=== PATIENT | female | born 1960 | race Caucasian/White ===

== ENCOUNTER → 2017-10-02 15:44 | Outpatient (CLI) | payer OTHER, SELFPAY ==
--- NOTE | 2017-10-02 16:06 | XR_ITS ---
XR chest 2V Ordering Physician: Carlitos Parisi Patient Age: 56 years: Female HISTORY: ITS.REASON: CHEST PAIN, SHORTNESS OF BREATH Chest pain short of breath TECHNIQUE: PA and lateral chest COMPARISON :No relevant studies no chest studies FINDINGS The lungs are well expanded and clear with no consolidation. No focal pneumonia. No pleural effusion. No pneumothorax. Heart is upper normal in size. Melanie and mediastinal structures satisfactory. Small calcified hilar nodes on right chest wall and T-spine intact. IMPRESSION Nothing definitely acute. Lungs clear Heart upper normal in size
[2017-10-02 16:39] LABS: Troponin I < 0.02 ng/ml (0.00-0.06)
[2017-10-02 16:51] LABS: D-Dimer < 100 (0-400)
== END ==
PROVIDERS: PCP Internal Medicine; Visit Provider Internal Medicine
DX: R07.9 Chest pain, unspecified (principal); R06.02 Shortness of breath
CPT/HCPCS: 36415; 71046; 84484; 85378; 93005

== ENCOUNTER → 2017-10-09 16:01 | Outpatient (CLI) | payer OTHER, SELFPAY ==
[2017-10-09 16:18] LABS: Blood Urea Nitrogen 16 mg/dL (7-18); Creatinine,Serum 0.69 mg/dL (0.55-1.02); Estimated Glomerular Filt Rate 88 ml/min (>60); GFR (African American) 107 ML/MIN (>60)
--- NOTE | 2017-10-09 16:54 | CT_ITS ---
CT angio chest Ordering Physician: Carlitos Parisi Patient Age: 56 years: Female HISTORY: ITS.REASON: PLEURISY ON RT. SOA TECHNIQUE: Thin section Helical CT scanning performed following 70 cc Isovue-[id number] followed by 40 mild normal saline From these thin section images thickened axial image set as well as slab volume MippCOMPARISON images in the sagittal coronal plane performed on independent workstation :. FINDINGS No no pulmonary embolism evident. Large patient with slightly limits the detail and resolution but overall study negative for PE. There may be some very minimal underlying chronic lung changes underlying.. Subtle groundglass slight hazy opacity towards the lung bases reflecting atelectasis or possibly early minor chronic lung changes.. Mild apical pleural scarring on right more so than left. Thyroid appears normal. The mediastinum reveals no significant adenopathy or mass. Scant minimal coronary artery calcification.. Heart is upper normal in size no pericardial effusion. No pleural effusion. No significant lung nodule. Calcified granuloma posterior RUL, 4.5 mm size Rib cage, but no obvious rib fractures or lesions. Mild to degenerative disc changes T-spine with mild anterior marginal osteophytes throughout. Uppermost abdomen. Adrenals normal. Fatty changes in liver. IMPRESSION No PE evident.Adequate quality study No focal pneumonia no pleural effusion. No pneumothorax. Perhaps subtle groundglass opacity towards the lung bases. May merely reflect atelectasis vs some early minor chronic lung changes. No significant lung nodule or mass. No mediastinal adenopathy nor hilar adenopathy or mass. IMPRESSION:
== END ==
PROVIDERS: PCP Internal Medicine; Visit Provider Internal Medicine
DX: R09.1 Pleurisy (principal); R06.02 Shortness of breath
CPT/HCPCS: 36415; 71275; 82565; 84520; Q9967

== ENCOUNTER → 2017-10-12 13:38 | Outpatient (CLI) | payer OTHER, SELFPAY ==
--- NOTE | 2017-10-12 13:41 | CA_ITS ---
PROCEDURE: 2-D M-mode and color Doppler study INDICATIONS FOR THE TEST: Chest painX COPD Heart Murmur Tobacco SmokingEX Palpitations Fatigue Syncope Edema HypertensionXDiabetes Mellitus Rheumatic Fever SOBXDOEXObesityXHyperlipidemiaX Family History HD Additional History X PATIENT INFORMATION HEIGHT: 60 WEIGHT:229 GENDER: Female B/P:117/70 2-D/M-MODE INTERPRETATION: 2-D MEASUREMENTS OBSERVED VALUES IN CMS Right Ventricular Dimension (RVDd) 2.2 Interventricular Septum (Thickness)(IVsd) 1.2 Left Ventricular Internal Dimensions(LVIDd) 5.5 Left Ventricular Posterior Wall (Thickness)(LVPWd) 1.1 Aortic Root 3.0 Aortic Cusp Separation 1.8 Left Atrial Dimensions (LAD) 3.7 2D 1. Left atrium is mildly enlarged, left ventricle is normal size, there is mild concentric left ventricular hypertrophy, visually estimated ejection fraction 55% with no obvious regional wall motion abnormality. 2. The right atrium and right ventricle are mildly enlarged with normal contractility. 3. The aortic valve is minimally thickened and fibrosed. 4. The mitral and tricuspid valve are grossly normal. 5. The pulmonic valve is poorly visualized. 6. No significant pericardial effusion noted. DOPPLER INTERROGATION: Doppler interrogation of the aortic, mitral and tricuspid valvular presence of mild mitral and tricuspid regurgitation, tricuspid regurgitant jet velocity insufficient for calculation of the right ventricular systolic pressure, grade 1 diastolic dysfunction seen without tissue Doppler evidence of raised left atrial pressure. CONCLUSION: 1. Mildly enlarged left atrium, normal left ventricular size, mild concentric left ventricular hypertrophy, visually estimated ejection fraction 55% with no obvious regional wall motion abnormality, grade 1 diastolic dysfunction seen without tissue Doppler evidence of raised left atrial pressure. 2. Mildly enlarged right atrium and right ventricle, contractility of the right ventricle is normal 3. No significant pericardial effusion noted. 4. Mild mitral and tricuspid regurgitation.
== END ==
PROVIDERS: Family Provider Internal Medicine; PCP Internal Medicine; Visit Provider Internal Medicine
DX: R09.1 Pleurisy (principal); R06.02 Shortness of breath
CPT/HCPCS: 93306

== ENCOUNTER → 2017-11-17 12:26 | Outpatient (CLI) | payer OTHER, SELFPAY | PROVIDERS: PCP Internal Medicine; Visit Provider Internal Medicine | DX: G47.30 Sleep apnea, unspecified (principal); R06.02 Shortness of breath; R09.1 Pleurisy; R06.83 Snoring | CPT/HCPCS: 95806 ==

== ENCOUNTER → 2018-07-16 15:51 | Outpatient (CLI) | payer OTHER, SELFPAY ==
--- NOTE | 2018-07-16 15:54 | MM_ITS ---
MM Dig screening mamm BI w/CAD ORDERING PHYSICIAN : Carlitos Parisi PATIENT AGE: 57 years GENDER: Female COMPARISON: December 02, 2016 bilateral mammogram & 06/03/2016 HISTORY: SCREENING no hormones. No new complaints. Patient with Previous stereotactic biopsy left breast. Family history. Maternal grandmother with breast cancer in her 80s TECHNIQUE: Standard CC and MLO images were obtained. R2 CAD reviewed. FINDINGS: Mild to moderate residual fibroglandular elements bilateral RIGHT BREAST: Small ovoid nodular density or cyst at deep right breast towards upper outer quadrant.Fairly well-defined margins.. However This has increased in size slightly since previous studies 2016 and 2015 radiograph the measures 13. mm x 8 mm.. I recommend spot views: MLO, 90 degrees & cc spot views and then ultrasound of right breast to further evaluate. Remainder of right breast stable LEFT BREAST: A particularly is biopsy at the deep left breast with 2 metallic markers from such a noted. 01A and one towards upper-outer quadrant of the deep left breast. No new findings of concern nodularity seen towards upper-outer quadrant is less evident today. Follow-up left mammogram 1 year adequate Remainder the right breast appears stable IMPRESSION: 1. Right breast.: Recommend spot views and ultrasound right breast. Slight interval enlargement of ovoid nodular density deep right breast towards upper-outer quadrant 2. Left breast. No new findings.. Follow-up in one year BI-RADS Category: 0 Need Additional Imaging Evaluation RECOMMENDED FOLLOW-UP: IMM - IMMEDIATE FOLLOW-UP RECOMMENDED Right breast Spot views and right breast ultrasound recommended (A letter has been sent to the patient regarding results of the study.)
== END ==
PROVIDERS: PCP Internal Medicine; Visit Provider Internal Medicine
DX: Z12.31 Encounter for screening mammogram for malignant neoplasm of breast (principal)
CPT/HCPCS: 77067

== ENCOUNTER → 2018-08-03 13:43 | Outpatient (CLI) | payer OTHER, SELFPAY ==
--- NOTE | 2018-08-03 13:53 | US_ITS ---
MM Dig mamm DX unilat RT CAD US breast RT complete, Ordering Physician: Carlitos Parisi Patient Age: 57 years: Female HISTORY: ITS.REASON: ABNORMAL MAMM TECHNIQUE: Spot CC and ML and MLO views right breast followed by right breast ultrasound including axillary survey COMPARISON :May 2016, 07/16/2018, 12/02/2016, ultrasound from June 2016. DIAGNOSTIC RIGHT MAMMOGRAM-SPOT VIEWS CC and MLO and 90 degree views right breast again demonstrate a nodular density deep upper outer quadrant. The 12 mm AP x 9 mm. ========= ULTRASOUND RIGHT BREAST. Included axilla survey Scanning performed through the entire breast including axillary survey. There is no areas of significant concern. A small cluster of debris-filled apocrine cyst 9 o'clock may be present measuring,. Possibly up to 6 mm size overall dimension. However in size is somewhat less than I would've expected from the mammogram. Would recommend follow-up ultrasound and mammogram 3 days 4 months for ongoing evaluation decreased since this is this density has become more apparent on the mammogram since 2016. However we have no stereotactic biopsy option currently and short interval follow-up would be best option IMPRESSION Right mammogram: Nodular density at upper-outer quadrant right breast on mammography is again evident measuring 12 x 9 mm.. This focal nodular has shown progression since 2016.. Today's ultrasound A cluster apocrine small cyst is seen in this area measuring up to 6 mm at 9:00 in the same region although it may matches density it is ultrasound appearance smaller than I would have expected. Recommended follow-up right mammogram and right breast ultrasound in 3-4 months to again evaluate. BI-RADS Category: 3 Probably Benign Finding Short Term Follow-up RECOMMENDED FOLLOW-UP: 3M - 3 MONTH FOLLOWUP (No stereotactic biopsy option currently available thus short interval follow-up right breast ultrasound and mammogram best option at this point for this probable benign area)
== END ==
PROVIDERS: PCP Internal Medicine; Visit Provider Internal Medicine
DX: R92.8 Other abnormal and inconclusive findings on diagnostic imaging of breast (principal)
CPT/HCPCS: 76641; 77065

== ENCOUNTER → 2018-11-05 14:09 | Outpatient (CLI) | payer OTHER, SELFPAY ==
--- NOTE | 2018-11-05 14:17 | MM_ITS ---
MM Dig mamm DX unilat RT CAD, US breast RT complete Ordering Physician: Carlitos Parisi Patient Age: 58 years Female INDICATION: Follow-up nodular density deep central central right breast slightly towards 9:00 COMPARISON: .. . August 03, 2018 right mammogram July 16, 2018 bilateral screening mammogram,. . December 02, 2016 and July 2018 right breast ultrasound & mammogram.. DIAGNOSTIC RIGHT MAMMOGRAM WITH SPOT VIEWS TECHNIQUE: Focal Cc and MLO view right breast along with spot CC and MLO view. FINDINGS: Again see 12.5 mm x 8.5 mm nodule at the deep right breast. This appears similar in size to nodule seen in July2018 a question incrementally larger x 1 mm.. But overall Fairly stable since 2018 but. It Has increased in size since 2017. Smooth wall delineated but slightly lobulated margin on mammography ======= ULTRASOUND RIGHT BREAST including axilla survey Survey entire breast was performed along with axillary survey, however particular attention was directed towards the region of this nodule. This area is difficult to visualize but the technologist did eventually visualize a small debris filled cystic area measuring up to over 1 cm at the deep central right breast 9 o'clock position which would seem to correlate. Slightly different position labeling than I would've expected but I believe this is the same cyst as seen on mammogram. It demonstrates minimal back wall enhancement and through transmission compatible with a cyst. This is slightly more evident slightly larger than on the ultrasound from July 2018 and I believe this is merely because it was better seen and demonstrated today. Follow-up In -6 months to resume annual mammogram schedule suggest-to further confirm stability And again confirmed benign cystic nature of this area. Again it was more difficult to visualize at ultrasound than I would've anticipated based on the mammogram. I personally scanned this area as well. ... . IMPRESSION: ...... 1. Today's right mammogram again shows a well-defined slightly lobulated ovoid deep right breast. It has not changed appreciably since July, on mammography. 2. Today's ultrasound does reveal a just over 1 cm debris-filled cyst which seem to correspond to this area at the deep central right breast 9 o'clock position. Overall would suggest a bilateral mammogram in 6 months to resume annual mammography schedule.. Ultrasound that time right breast again suggested. & Further confirm stability BI-RADS Category: 3 Probably Benign Finding Short Term Follow-up RECOMMENDED FOLLOW-UP: 6M 6 MONTH FOLLOW-UP A letter has been sent to the patient regarding results of the study.)
== END ==
PROVIDERS: PCP Internal Medicine; Visit Provider Internal Medicine
DX: R92.8 Other abnormal and inconclusive findings on diagnostic imaging of breast (principal)
CPT/HCPCS: 76641; 77065

== ENCOUNTER → 2019-04-12 09:30 | Outpatient (CLI) | payer OTHER, SELFPAY ==
--- NOTE | 2019-04-12 09:33 | XR_ITS ---
PROCEDURE: XR FINGER LT MIN 2V CLINICAL INDICATION: LT THUMB PAIN AND DEFORMITY COMPARISON: No exams were available for comparison FINDINGS: No fracture or dislocation. No lytic or blastic change. There is normal mineralization. There is minor osteophytic spurring of the IP joint of thumb. There is mild diffuse soft tissue swelling about the proximal and distal phalanx of the thumb. There are no foreign bodies. IMPRESSION: 1. No acute bony findings. Dictated by: Dr. Tristan Naik MD 04/12/2019 10:[address] Tristan Naik MD in [place] 04/12/2019 10:06
== END ==
PROVIDERS: PCP Internal Medicine; Visit Provider Internal Medicine
DX: M79.645 Pain in left finger(s) (principal)
CPT/HCPCS: 73140

== ENCOUNTER → 2019-09-06 15:48 | Outpatient (CLI) | payer BC, SELFPAY ==
--- NOTE | 2019-09-06 15:51 | MM_ITS ---
PROCEDURE: MM DIG SCREENING MAMM BI W/CAD CLINICAL INDICATION: SCREENING There is a history of breast cancer patient's maternal grandmother diagnosed after menopause. COMPARISON: [facility] MM Dig screening mamm BI w/CAD from 07/16/2018 DXRT MM Dig mamm DX unilat RT CAD from 08/03/2018 DXRT MM Dig mamm DX unilat RT CAD from 11/05/2018 TECHNIQUE: Standard CC and MLO images and 3D Tomosynthesis was obtained. R2 CAD reviewed. FINDINGS: Scattered fibroglandular densities are seen in both breasts on a background of fatty breast parenchyma. Again noted is the asymmetric oval density central portion right breast which are stable unchanged from previous studies dating back to July 2018. There is a biopsy clip outer quadrant left breast with minimal associated post biopsy scarring. There is a benign-appearing calcification in each breast. Alek images were reviewed. IMPRESSION: Fibrofatty parenchyma with no suspicious lesions seen BI-RAD Category: 2 Benign Finding(s) FOLLOW-UP: 1YR 1 Year Follow-up (A letter has been sent to the patient regarding results of the study.) Dictated by: Dr. Tristan Naik MD 09/10/2019 09:[address] Tristan Naik MD in [place] 09/10/2019 09:11
== END ==
PROVIDERS: PCP Internal Medicine; Visit Provider Internal Medicine
DX: Z12.31 Encounter for screening mammogram for malignant neoplasm of breast (principal)
CPT/HCPCS: 77063; 77067

== ENCOUNTER → 2019-12-31 15:33 | Outpatient (CLI) | payer OTHER, SELFPAY ==
--- NOTE | 2019-12-31 15:40 | XR_ITS ---
PROCEDURE: XR KNEE LT 3V CLINICAL INDICATION: LEFT MEDIAL KNEE PAIN, INJURY AT WORK Medial knee pain, twisting injury with pain COMPARISON: No exams were available for comparison FINDINGS: No fracture or dislocation. No lytic or blastic change. There is normal mineralization. The joint spaces are well-preserved. No significant degenerative/arthritic changes. No erosive changes evident. Other findings:There is a small calcific density along the anterior and proximal aspect of the patella which could represent an old avulsion injury or tendinous injury. This is well-circumscribed. IMPRESSION: No acute findings. Dictated by: Minesh Morgan MD 12/31/2019 15:58 Electronically signed by Minesh Morgan MD in [place] 12/31/2019 15:58
== END ==
PROVIDERS: PCP Internal Medicine; Visit Provider Internal Medicine
DX: M25.562 Pain in left knee (principal); S89.92XA Unspecified injury of left lower leg, initial encounter
CPT/HCPCS: 73562

== ENCOUNTER → 2020-01-27 13:59 | Outpatient (CLI) | payer OTHER, SELFPAY ==
--- NOTE | 2020-01-27 14:05 | XR_ITS ---
PROCEDURE: XR KNEE LT 4V CLINICAL INDICATION: Left knee pain COMPARISON: XR KNEE LT 3V from 12/31/2019 FINDINGS: There are no interval changes. There is a 2.7 millimeter smooth calcification within soft tissues anterior to the patella. The medial, lateral, and the patellofemoral joint spaces are intact. There is no fracture, dislocation, or soft tissue abnormalities. IMPRESSION: No significant change, no acute fracture or dislocation Dictated by: Donald Patterson 01/27/2020 14:38 Electronically signed by Donald Patterson in [place] 01/27/2020 14:38
== END ==
PROVIDERS: PCP Internal Medicine; Visit Provider Orthopaedic Surgery
DX: M25.562 Pain in left knee (principal)
CPT/HCPCS: 73564

== ENCOUNTER 2020-04-09 13:30 | Outpatient (RCR) | payer OTHER, SELFPAY ==
--- NOTE | 2020-01-29 13:44 | HMH.PTOPEV ---
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 She reports no pain at rest, but pain increases when she is walking or actively using the L LE. She had x-ray performed which was negative for fx. She reports no c/o numbness or tingling and no other pain. Chief Complaint Pain Symptom Type Sharp Symptoms Relieved By Rest/Positioning Symptoms Aggravated By Physical Activity,Walking Prior Functional Limitations None Current Functional Limitations Walking,Stairs Symptom Description Activity Dependent Level of pain today (0-10) 5 Pain scale - at its worst (0-10) 8 Hip/Knee Eval Gait Observation General Gait Pattern Observation No Deviations/Normal Palpation Tenderness left Knee Palpation Finding Tenderness Knee Palpation Overall Comment popliteal MMT Hip Flexion Strength Grade 4 Good Hip Abduction Strength Grade 4 Good Knee Extension Strength Grade 5 Normal Knee Flexion Strength Grade 4 Good ROM Knee Extension Active Range of Motion ( 0 degrees) Knee Flexion Active Range of Motion ( 0-133 degrees) Special Tests Knee Apley Compression Test Negative Left,Negative Right Knee Anterior Drawer Test Negative Left,Negative Right Knee Anterior Mira Test Negative Left,Negative Right Knee Posterior Sag ([place] Drawer) Test Negative Left,Negative Right Knee Valgus Stress Test Negative Left,Negative Right Knee Varus Stress Test Negative Left,Negative Right Outpatient Therapy Assessment Impairments Problems/Impairmments Palpation Tenderness,Impaired Strength,Impaired Walking, Subjective C/O Pain,Impaired Self Care/Self Management Prognosis Rehab Potential Good Clinical Impression Consistent with Diagnosis Yes Short Term Goals Number of Weeks 4 Decreased Palpation Tenderness Yes: to min Increase Strength Yes: L LE 4+/
--- NOTE | 2020-03-04 14:46 | HMH.RHREAS ---
Rehab Reassessment Rehab OP Re-assessment Start: 03/04/20 14:42 Freq: Status: Active Protocol: Document 03/04/20 14:43 CLAUDE (Rec: 03/04/20 14:46 CLAUDE [id number]) Electronically Signed By Kishan Soto, PT 03/04/20 14:43 Rehab Re-assessment Subjective Subjective Pt reports she feels better overall, but worries about having to do high steps at work. Objective Objective Notes MMT L LE grossly 4+/5 throughout. Pain: 3/10 in L knee. Assessment Progress Assessment Progressing as Expected Assessment Notes Improved endurance to all activity, no antalgic gait, large step-ups remain difficult. Patient goals met ST,2,3,4,5 Goals Not Met LT,2,3,4,5 Revised Goals none Plan Plan Continue per initial POC. Frequency of Therapy 2 x/wk Duration of therapy 8 wks Time and Billing Re-Eval Time 15 Re-Eval Billing Units 1 PHYSICIAN CERTIFICATION: I certify the specified therapy services for Amy Noguera are required, authorized, and reviewed every 30 days.
== END 2020-04-09 13:35 | disposition home or self-care (01) ==
LOC: PT 13:30
PROVIDERS: Visit Provider Orthopaedic Surgery
DX: S86.912A Strain of unspecified muscle(s) and tendon(s) at lower leg level, left leg, initial encounter (principal)
CPT/HCPCS: 97010; 97014; 97035; 97110; 97112; 97140; 97163; 97164; 97530; G0283

== ENCOUNTER → 2020-09-11 12:48 | Outpatient (CLI) | payer BC, SELFPAY ==
--- NOTE | 2020-09-11 13:10 | MM_ITS ---
PROCEDURE: MM DIG SCREENING MAMM BI W/CAD Digital Breast Tomosynthesis Included CLINICAL INDICATION: SCREENING There is a history of breast cancer patient's maternal grandmother diagnosed at age 80. There has been a previous biopsy left breast for benign disease. COMPARISON: MG DXRT MM Dig mamm DX unilat RT CAD from 08/03/2018 MG DXRT MM Dig mamm DX unilat RT CAD from 11/05/2018 MG MM DIG SCREENING MAMM BI W/CAD from 09/06/2019 TECHNIQUE: Standard CC and MLO images and 3D Tomosynthesis was obtained. R2 CAD reviewed. FINDINGS: The breasts are composed primarily of fat with scattered fibroglandular densities throughout each breast. Again noted is a stable asymmetric benign-appearing nodular density right breast. There is a biopsy clip upper outer quadrant left breast with minimal post biopsy scarring seen adjacent to the clip. There are couple of benign-appearing microcalcifications in each breast. There is no suspicious lesion and no suspicious microcalcifications. IMPRESSION: Fibrofatty parenchyma with no suspicious lesions seen BI-RAD Category: 2 Benign Finding(s) FOLLOW-UP: 1YR 1 Year Follow-up (A letter has been sent to the patient regarding results of the study.) Dictated by: Dr. Tristan Naik MD 09/16/2020 10:26 Dr. Tristan Naik MD in [place] 09/16/2020 10:26
== END ==
PROVIDERS: PCP Internal Medicine; Visit Provider Internal Medicine
DX: Z12.31 Encounter for screening mammogram for malignant neoplasm of breast (principal)
CPT/HCPCS: 77063; 77067

== ENCOUNTER → 2021-02-19 09:29 | Outpatient (CLI) | payer BC, SELFPAY ==
--- NOTE | 2021-02-19 09:35 | XR_ITS ---
PROCEDURE: XR HIP LT 2-3V W/PELVIS CLINICAL INDICATION: LT hip pain COMPARISON: No exams were available for comparison FINDINGS: [id number] osteoarthritic changes are present involving the left hip with loss of joint space and osteosclerosis and small osteophytes. No fracture or dislocation. No lytic or blastic change. IMPRESSION: [id number] osteoarthritis of the left hip Dictated by: Minesh Morgan MD 02/19/2021 11:16 Minesh Morgan MD in [place] 02/19/2021 11:16
== END ==
PROVIDERS: PCP Internal Medicine; Visit Provider Orthopaedic Surgery
DX: M25.552 Pain in left hip (principal)
CPT/HCPCS: 73502

== ENCOUNTER → 2021-03-02 14:44 | Outpatient (CLI) | payer BC, SELFPAY ==
--- NOTE | 2021-03-02 15:09 | XR_ITS ---
PROCEDURE: XR CHEST 2V CLINICAL HISTORY: HTN, COMPARISON: CR CXR2V XR chest 2V from 10/02/[address] angio chest from 10/09/2017 FINDINGS: The cardiomediastinal silhouette and pulmonary vascularity are within normal limits. The lungs are clear without infiltrates, suspicious nodules, or pleural effusions. Calcified granuloma right upper lobe. No acute bony findings. IMPRESSION: No acute findings. Dictated by: Minesh Morgan MD 03/02/2021 15:41 Minesh Morgan MD in [place] 03/02/2021 15:41
--- NOTE | 2021-03-02 15:33 | ECG_ITS ---
APPROVED REPORT Exam: Resting ECG HR:65 bpm ECG Measurements Heart Rate 65 AXES MN 144 P 57 QRSd 76 QRS 86 QT 412 T 75 QTc 428 Conclusion Normal sinus rhythm Normal ECG Electronically signed by : Augustine Gagnon, 03/02/2021 16:46:35
[2021-03-02 15:35] LABS: Basophils # 0.1 K/mm3 (0-0.2); Basophils % 1.3 % (0.1-2.0); Eosinophils # 0.4 K/mm3 (0.0-0.4); Eosinophils % 5.5 % (0.1-12.0); Hematocrit 40.4 % (37.0-47.0); Hemoglobin 13.6 g/dL (12.2-16.2); Lymphocytes % 38.3 % (10-50); Mean Corpuscular HGB Conc 33.6 g/dL (31.8-35.4); Mean Corpuscular Hemoglobin 29.2 pg (27.0-31.2); Mean Corpuscular Volume 86.8 fl (81-99); Mean Platelet Volume 8.1 fl (7.4-10.4); Monocytes # 0.6 K/mm3 (0.1-1.0); Monocytes % 8.2 % (1.7-9.3); Neutrophils # 3.6 K/mm3 (1.8-7.8); Neutrophils % 46.6 % (37.0-80.0); Platelet Count 296 K/mm3 (142-424); Red Blood Count 4.66 M/mm3 (4.20-5.40); Red Cell Distribution Width 13.9 % (11.5-17.5); Reticulocyte % (Auto) 1.8 % (0.9-3.2); White Blood Count 7.8 K/mm3 (4.8-10.8)
[2021-03-02 15:45] LABS: Chloride 104 mmol/L (98-107); Potassium 4.4 mmoL/L (3.5-5.1); Sodium 140 mmol/L (136-145)
[2021-03-02 15:48] LABS: Anion Gap 13.4 mEq/L (5-15); Blood Urea Nitrogen 12 mg/dl (7-17); Calcium 9.6 mg/dl (8.4-10.2); Carbon Dioxide 27 mmol/L (22.0-30.0); Estimated Glomerular Filt Rate 86 ml/min (>60); GFR (African American) 104 ML/MIN (>60); Glucose 101 mg/dl (74-100); Iron 82 ug/dL (37-170)
[2021-03-02 15:57] LABS: Total Iron Binding Capacity 330 ug/dL (265-497)
== END ==
PROVIDERS: Visit Provider Internal Medicine
DX: Z01.810 Encounter for preprocedural cardiovascular examination (principal); I10 Essential (primary) hypertension; D64.9 Anemia, unspecified; G47.33 Obstructive sleep apnea (adult) (pediatric)
CPT/HCPCS: 36415; 71046; 80048; 83540; 83550; 85025; 85044; 93005

== ENCOUNTER → 2021-03-22 15:51 | Outpatient (CLI) | payer BC, SELFPAY ==
[2021-03-22 15:54] LABS: Microscopic, Urine URINE MICROSCOPIC (MICROSCOPIC)
[2021-03-22 17:06] LABS: Basophils # 0.1 K/mm3 (0-0.2); Eosinophils # 0.5 K/mm3 (0.0-0.4); Eosinophils % 5.4 % (0.1-12.0); Hematocrit 40.3 % (37.0-47.0); Hemoglobin 13.3 g/dL (12.2-16.2); Lymphocytes # 3.5 K/mm3 (0.7-4.5); Lymphocytes % 36.4 % (10-50); Mean Corpuscular Hemoglobin 28.8 pg (27.0-31.2); Mean Corpuscular Volume 87.5 fl (81-99); Mean Platelet Volume 8.1 fl (7.4-10.4); Monocytes # 0.5 K/mm3 (0.1-1.0); Monocytes % 5.1 % (1.7-9.3); Neutrophils % 52.1 % (37.0-80.0); Platelet Count 273 K/mm3 (142-424); Red Blood Count 4.61 M/mm3 (4.20-5.40); Red Cell Distribution Width 13.8 % (11.5-17.5); White Blood Count 9.6 K/mm3 (4.8-10.8)
[2021-03-22 19:09] LABS: Appearance,Urine CLEAR (Clear); Bilirubin,Urine Negative (Negative); Blood, Urine Negative (Negative); Color,Urine YELLOW (Yellow); Glucose,Urine (UA) Negative (Negative); Ketones,Urine Negative (Negative); Leukocyte Esterase,Urine Negative (Negative); Nitrate,Urine Negative (Negative); Protein,Urine Negative (Negative)
[2021-03-22 19:18] LABS: Chloride 103 mmol/L (98-107)
[2021-03-22 19:19] LABS: Potassium 3.9 mmoL/L (3.5-5.1); Sodium 140 mmol/L (136-145)
[2021-03-22 19:22] LABS: Anion Gap 11.9 mEq/L (5-15); Blood Urea Nitrogen 14 mg/dl (7-17); Calcium 9.1 mg/dl (8.4-10.2); Carbon Dioxide 29 mmol/L (22.0-30.0); Estimated Glomerular Filt Rate 102 ml/min (>60); GFR (African American) 124 ML/MIN (>60); Glucose 143 mg/dl (74-100)
[2021-03-22 19:38] LABS: RBC,Urine Occasional #/hpf (0-3); WBC,Urine Occasional #/hpf (0-3)
== END ==
PROVIDERS: Visit Provider Orthopaedic Surgery
DX: Z01.818 Encounter for other preprocedural examination (principal); M16.12 Unilateral primary osteoarthritis, left hip; I10 Essential (primary) hypertension
CPT/HCPCS: 36415; 80048; 81001; 85025

== ENCOUNTER → 2021-03-27 10:40 | Outpatient (CLI) | payer BC, SELFPAY ==
--- NOTE | 2021-03-27 10:55 | XR_ITS ---
PROCEDURE INFORMATION: Exam: XR Left Hip Exam date and time: 03/27/2021 10:55 AM Age: 60 years old Clinical indication: Hip pain; Left hip; Additional info: Pre-op; Total hip arthroplasty TECHNIQUE: Imaging protocol: XR Left hip. Views: 2 or 3 views hip with pelvis when performed. COMPARISON: CR XR HIP LT 2-3V W/PELVIS 02/19/2021 9:35 AM FINDINGS: Bones/joints: Severe joint space narrowing left hip with sclerotic changes along the superior acetabulum and femoral head. No acute fracture or dislocation. Soft tissues: Unremarkable. IMPRESSION: Severe joint space narrowing left hip with sclerotic changes along the superior acetabulum and femoral head.
== END ==
LOC: LAB 10:41 → RAD 10:54
PROVIDERS: PCP Internal Medicine; Visit Provider Orthopaedic Surgery
DX: Z01.818 Encounter for other preprocedural examination (principal); Z20.822 Contact with and (suspected) exposure to COVID-19; M16.12 Unilateral primary osteoarthritis, left hip; M25.552 Pain in left hip; G89.29 Other chronic pain
CPT/HCPCS: 36415; 73502; 86850; U0003

== ENCOUNTER 2021-03-29 07:52 | Observation (INO) | payer BC, SELFPAY ==
--- NOTE | 2021-03-17 15:02 | SW/DCPLANNER ---
Addendum entered by Serena Cannon 03/30/21 12:20: Ayse nieves/ Dirk is reviewing patient information. Addendum entered by Serena Cannon 03/30/21 11:08: Patient has requested that I check and see if she has an insurance benefit for home health. I will follow up with insurance benefit then speak with patient. Patient has stated that if she does not qualify for home health she will return to [facility] for outpatient PT. Original Note: I called and spoke with this patient regarding upcoming total hip surgery on 03/29/21. Patient stated that her plan is to return home and receive assistance from her sister. Patient sisters lives right next door to patient. Patient stated that she already has a rolling walker at home and intends on returning back to [facility] outpatient PT services. I will follow up with this patient on day of surgery. Patient did not have any further questions at this time.
[2021-03-26 11:20] VITALS: BMI 45.8
[2021-03-29] VITALS (23 sets, daily range): BP systolic 96–169; BP diastolic 50–109; PULSE 85–124; RESP 16–22; TEMP 36.1–43; O2SAT 93–100
--- NOTE | 2021-03-29 08:36 | HMH.PHAINT ---
MEDICATION RECONCILIATION COMPLETED ON PATIENT USING EXTERNAL FILL HISTORY FROM PHARMACY. -FAUSTO WILSON, JBD
--- NOTE | 2021-03-29 08:53 | P.PN_ITS ---
[facility] Anesthesia Checklist - Patient Identification Patient Identification: Arm Band, Verbal (Name & ) - Structural Data Admitted From: Home Planned Operative Procedure/s: eda Consent for Planned Operative Procedure(s) Verified: Yes Verified Documents: History and Physical - Chart Verification Results Verified: CBC - Additional verifications Patient : No Anesthesia Reactions: No Hx Blood Transfusions: No Blood Transfusion Reaction: No Cephalosporin Allergy: No Previous Colonoscopy: No - Cardiovascular Assessment Heart Sounds: S1 & S2 Pulse Strength: Baseline Pulse Rhythm: Regular Peripheral Edema: No - Airway Assessment C-Spine Mobility Assessed: Yes TMJ Mobility Assessed: Yes Dentition: Good Dentition - Neurological Assessment Level of Consciousness: Awake, Alert, Appropriate Hx Seizures: No Numbness or tingling in extremities: No - Anesthesia Plan Anesthesia Risk discussed: Yes Anesthesia Plan: Verified ASA Class: III Anesthesia Type: General [facility] History I have reviewed the patient's past medical history: Yes Medical History: Reports:: Depression, Hyperlipidemia, Hypertension Denies:: Cancer, Diabetes Mellitus Type 1, Diabetes Mellitus Type 2, Internal Pacemaker, MRSA, Seizures *Have you ever received a pneumonia vaccine?: Yes *Have you received a flu vaccine this season?: Yes Other Medical History: Reports: Arthritis. Denies: Blood Transfusion Reaction Anesthesia experience/problems:: none Laterality Cases: Bilateral: Carpal Tunnel Release Other Surgeries: Yes: Hysterectomy-Total, Other. No: Pacemaker Amputation: No Fractures: No - *Social History Last grade of school completed: High school graduate Smoking Status: Never smoker Alcohol Intake: current Alcohol Intake Frequency:: a few times a week Substance Use Type: other *Occupational Status:: employed Housing: house Household Members: none *Travel in the last 8 weeks: None - Psychiatric History Pschychiatric History:: Reports:: Depression Family Hx:: Hypertension, Stroke, Diabetes, Heart Attack, Cancer
--- NOTE | 2021-03-29 12:43 | SUR.OPER ---
1247- 22.5 ml betadine mixed in 500ml NS irrigated at this time.
--- NOTE | 2021-03-29 13:51 | XR_ITS ---
PROCEDURE: XR HIP LT 2-3V W/PELVIS CLINICAL INDICATION: Post CHERYL COMPARISON: CR XR HIP LT 2-3V W/PELVIS from 03/27/2021 FINDINGS: Status post total left hip arthroplasty. There is good alignment. There is a small amount of soft tissue gas noted.. IMPRESSION: Good alignment status post total hip replacement Dictated by: Minesh Morgan MD 03/29/2021 15:28 Minesh Morgan MD in [place] 03/29/2021 15:28
--- NOTE | 2021-03-29 13:54 | HMH.ANESI ---
[facility] Anesthesia Record Part I Intake, IV Amount: 1,700 Estimated blood loss (mL): 350 Urine output (mL): 375 Blood Pressure: 96/66 SaO2: 97 Pulse Rate: 124 Respiratory Rate: 18 Temperature: 97.7 F Patient is:: Awake Stable to PACU at:: 13:52
[2021-03-29 14:13] LABS: Microscopic,Cath URINE MICROSCOPIC (MICROSCOPIC)
[2021-03-29 14:45] LABS: Appearance,Urine/Cath CLEAR (Clear); Bilirubin,Cath Negative (Negative); Blood, Urine/Cath Negative (Negative); Color,Urine/Cath YELLOW (Yellow); Glucose,Urine/Cath (UA) Negative (Negative); Ketones,Urine/Cath Negative (Negative); Leukocyte Esterase,Cath Negative (Negative); Nitrate,Cath Negative (Negative); Protein,Urine/Cath Negative (Negative); Urobilinogen,Cath 0.2 EU/dl (0.2)
[2021-03-29 14:53] LABS: Bacteria,Urine/Cath 1+ /lpf; Mucus,Urine/Cath 1+ /lpf; WBC,Urine/Cath Occasional #/hpf (0-3)
--- NOTE | 2021-03-29 15:00 | HMH.OPNOTE ---
Date of procedure: 03/29/21 Pre-op Diagnosis:: Advanced osteoarthritis, left hip Post-op Diagnosis:: Same Procedure performed:: Uncemented total hip arthroplasty, left Surgeon:: Dev Harris MD Product Communications Manager(s):: Vianey Woods INKING MACHINE TENDER:: Other (Ren Royal) Anesthesia: GETA Estimated blood loss (mL): 350 Clinical Note:: Patient is a 60-year-old female with advanced osteoarthritis of the LEFT hip unresponsive to conservative management. The arthritis is causing severe pain and significant disability and has not responded well to conservative management. Her mobility, ability to work, and quality of life is severely impacted. The pain is also affecting her lifestyle, activities of daily living and significantly impacting her sleep. Also she is at a high risk of falls from the arthritis. Therefore a total hip arthroplasty is indicated to relieve pain and to reduce the disability and risk of falls. Please refer to my office note for full details. Operative findings:: Preoperative examination and x-ray findings were consistent with the above diagnosis. Intraoperatively, fairly advanced osteoarthritis of the hip joint is noted. Both the femoral head and acetabulum have arthritic changes with osteophyte formation on both the acetabular and the femoral side. The capsule/soft tissues are contracted and somewhat tight. The bone quality is good. Operative note:: On the day of the procedure the patient was met in the preoperative area and the patient was positively identified. A physical examination was performed and documented. The operative site was appropriately marked and initialed by me. I again reviewed the diagnosis, natural history and management options in detail including both nonsurgical and surgical. We discussed the proposed surgery, risks and benefits and alternatives in detail. The complications discussed include but are not limited to infection, bleeding, injury to nerves, blood vessels and tendons, DVT and PE, fracture, limb length inequality, dislocation, implant malpositioning, implant failure, squeaking, loosening, acetabular wear, osteolysis, periprosthetic femur fracture, heterotopic ossification, abductor weakness and limp, incomplete relief of pain, incomplete recovery of function, chronic pain, likely need for further surgery in future including revision, anesthetic complications including heart attack, stroke and even . We also discussed the postoperative recovery and rehabilitation. Patient verbalized a good understanding and wished to proceed with the proposed surgery. Patient understood the risks, agreed to proceed with surgery and no guarantees or assurances were given or implied. The patient was brought to the operating room and a spinal anesthesia was administered by the high reach operator. The patient was then positioned in the RIGHT lateral decubitus position with the LEFT hip facing up. We used Wixon hip positioner for this. All the bony prominences were appropriately padded. The LEFT hip was then prepped with isopropyl alcohol followed by chlorhexidine and draped in the usual sterile fashion. The entire operative team wore isolation suits and the Operating Room traffic was controlled. The skin incision was marked for a posterior approach to the hip joint. The perineum and the operative site were sealed off with Ioban drape. A preprocedure timeout was performed as per hospital protocol identifying the patient, correct surgery and correct site. Administration of prophylactic antibiotics (IV Ancef and vancomycin) was confirmed with the high reach operator. Before completion of the procedure 1 more gram of IV Ancef was administered as the operating time was over 2 hours. We have also administered IV tranexamic acid just before the incision and another dose at the end of the procedure, to reduce the nigel-operative bleeding. A posterior approach was used to the LEFT hip joint. The skin incision was made centering over the posterior part of the greater t
--- NOTE | 2021-03-29 15:21 | HMH.PHAVTE ---
[facility] Pharmacy VTE Monitoring - Patient Demographics Admission date: 03/29/21 Report Date: 03/29/21 Time: 15:21 Allergies/Adverse Reactions: Patient Allergies No Known Allergies Allergy (Verified 03/22/21 14:50) Height: 1.5 m Weight: 102.965 kg - Prophylaxis VTE Prophylaxis Ordered?: Yes Types of VTE Prophylaxis: IPCS Thigh High, Pharmacological Location of Applied Device: Bilateral Lower Extremeties Pharmacologic Type: Other (XARELTO)
--- NOTE | 2021-03-29 15:36 | HMH.ORTHHP ---
*Admission Date: 03/29/21 *Reason for consult:: Status post total hip arthroplasty, left *History of present illness: Patient is a 60-year-old female with advanced degenerative arthritis of her left hip unresponsive to conservative management. She is admitted to hospital following a difficult but uncomplicated primary left total hip arthroplasty earlier today. She has had left hip pain for over a year and is gradually getting worse. She localizes the pain to anterior aspect of the left hip with radiation into the left thigh and knee joint. She rates her pain a 6 out of 10 at rest and a 9 out of 10 at its worse. 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 She also reports night pain and sleep disturbance. The hip pain is adversely affecting her job, activities of daily living and quality of life. She is finding it increasingly difficult to walk and also reports night pain and sleep disturbance. She takes arthritis medication (meloxicam), Tylenol and uses ice throughout the day with little to no pain relief. She denies any distal tingling and numbness. Her medical history includes Depression, Hyperlipidemia, hypertension and obesity. She is a non smoker. 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 Please refer to my office note for full details. [facility] History I have reviewed the patient's past medical history: Yes Medical History: Reports:: Depression, Hyperlipidemia, Hypertension Denies:: Cancer, Diabetes Mellitus Type 1, Diabetes Mellitus Type 2, Internal Pacemaker, MRSA, Seizures *Have you ever received a pneumonia vaccine?: Yes *Have you received a flu vaccine this season?: Yes Other Medical History: Reports: Arthritis. Denies: Blood Transfusion Reaction Anesthesia experience/problems:: none Laterality Cases: Bilateral: Carpal Tunnel Release Other Surgeries: Yes: Hysterectomy-Total, Other. No: Pacemaker Amputation: No Fractures: No - *Social History Last grade of school completed: High school graduate Smoking Status: Never smoker Alcohol Intake: current Alcohol Intake Frequency:: a few times a week Substance Use Type: other *Occupational Status:: employed Housing: house Household Members: none *Travel in the last 8 weeks: None - Psychiatric History Pschychiatric History:: Reports:: Depression Family Hx:: Hypertension, Stroke, Diabetes, Heart Attack, Cancer Review of Systems - Review of Systems Review of systems:: pertinent systems reviewed and negative unless documented below - Constitutional Denies chills, Denies fever(s) - Eyes Denies change in vision - ENT Denies abnormal hearing - *Cardiovascular Denies chest pain, Denies shortness of breath - *Respiratory Denies chest congestion, Denies cough - *Gastrointestinal Denies abdominal pain, Denies change in bowel habits - *Musculoskeletal Reports abnormal walking, Reports joint pain, Reports limited joint movement - Integumentary/Breasts Denies bleeding lesions, Denies skin ulcer - *Neurologic Reports abnormal walking, Denies seizure-like activity, Denies tingling/numbness/burning sensations - Endocrine Denies cold intolerance, Denies heat intolerance - Hematologic/Lymphatic Denies easy bleeding, Denies easy bruising Meds Home Medications Medication Instructions Recorded Confirmed Type meloxicam 15 mg tablet 15 mg PO DAILY 08/30/18 03/26/21 History simvastatin 80 mg tablet 80 mg PO HS 08/30/18 03/29/21 History Citalopram Hydrobromide 40 mg PO DAILY 03/29/21 03/29/21 History [Citalopram 40mg Tablet] Omeprazole [Omeprazole 20mg 20 mg PO DAILY 03/29/21 03/29/21 History Capsule] hydroCHLOROthiazide [HCTZ 25mg 25 mg PO DAILY 03/29/21 03/29/21 History tab] lisinopriL [Lisinopril] 40 mg PO DAILY 03/29/21 03/29/21 History Allergies Allergy/AdvReac Type Severity Reaction Status Date / Time No Known Allergies Allergy Verified 03/22/21 14:50 Exam Vit
[2021-03-30 03:23] VITALS: BP 132/72; PULSE 92; RESP 18; TEMP 36.9; O2SAT 94
--- NOTE | 2021-03-30 03:54 | PC.NURSE ---
Addendum entered by Flaca Stevens RN 03/30/21 03:56: incentive spirometry given to patient and instructed patient of use and importance. patient did incentive spirometer throughout shift. Original Note: A&Ox4. complained of pain and prn pain pill given along with ibuprofen and tylenol. VSS. Dressing to incision is clean dry and intact. Good urine output per burns. No further concerns voiced to rn.
[2021-03-30 06:20] LABS: Basophils % 0.3 % (0.1-2.0); Eosinophils # 0.1 K/mm3 (0.0-0.4); Eosinophils % 0.7 % (0.1-12.0); Hematocrit 31.5 % (37.0-47.0); Hemoglobin 10.4 g/dL (12.2-16.2); Lymphocytes # 2.6 K/mm3 (0.7-4.5); Lymphocytes % 18.9 % (10-50); Mean Corpuscular HGB Conc 33.1 g/dL (31.8-35.4); Mean Corpuscular Hemoglobin 30.1 pg (27.0-31.2); Mean Corpuscular Volume 90.9 fl (81-99); Mean Platelet Volume 8.1 fl (7.4-10.4); Monocytes % 7.1 % (1.7-9.3); Neutrophils # 9.9 K/mm3 (1.8-7.8); Platelet Count 281 K/mm3 (142-424); Red Blood Count 3.47 M/mm3 (4.20-5.40); White Blood Count 13.5 K/mm3 (4.8-10.8)
[2021-03-30 06:34] LABS: Chloride 98 mmol/L (98-107); Potassium 4.2 mmoL/L (3.5-5.1); Sodium 136 mmol/L (136-145)
[2021-03-30 06:37] LABS: Blood Urea Nitrogen 11 mg/dl (7-17); Creatinine Clearance Estimated 59 mL/min (50-200); Estimated Glomerular Filt Rate 86 ml/min (>60); GFR (African American) 104 ML/MIN (>60)
[2021-03-30 06:38] LABS: Anion Gap 13.2 mEq/L (5-15); Calcium 8.9 mg/dl (8.4-10.2); Carbon Dioxide 29 mmol/L (22.0-30.0); Glucose 103 mg/dl (74-100)
[2021-03-30 08:00] VITALS: BP 133/77; PULSE 89; RESP 18; TEMP 37; O2SAT 94
--- NOTE | 2021-03-30 09:10 | HMH.PTEV ---
Physical Therapy Evaluation Rehab PT IP Evaluation Start: 03/29/21 14:36 Freq: ONCE Status: Active Protocol: Document 03/30/21 09:01 PHORMARIKA (Rec: 03/30/21 09:10 PHORNE [id number]) Subjective/History History History Pt is 60 year old female admitted to [facility] s/p left CHERYL Subjective Subjective Pt reports minimal pain this morning. Pt states she lives alone in one level home with 3 stairs to enter home. Pt states no prior use of AD. Eval completed by NATE Atwood. Rehab PT IP Eval Objective Appearance Patient Behavior Appropriate,Cooperative Patient Orientation Place,Name,Birthday,Year Difficulty following instructions none Speech Pattern Clear,Appropriate,Coherent Ambulation Patient Able to Ambulate Yes Ambulation Observation IP General Gait Pattern Observation Wide Based Gait,Shuffling Step Ambulation Distance (feet) 15 Ambulation Assistive Device Rolling Walker Ambulation Ability Contact Guard/Hand Hold Balance Ability to Arise Able, uses arms to help Sitting Balance Steady, safe Standing Balance Steady, wide stance Dynamic Sitting Balance Ability Good Dynamic Standing Balance Ability Good Transfers Bed Transfer Ability Minimal x 1 (25% assist) Chair Transfer Ability Contact Guard/Hand Hold Sit to Stand Bed Transfer Ability Contact Guard/Hand Hold ROM All Extremities PT ROM Status WFL MMT All Extremities PT MMT WFL Rehab PT IP prob,goals,plan Problems Date of Evaluation: 03/30/21 PT IP Problems Bed Mobility,Transfers,Gait, Safety Rehab Potential Rehab Potential Good Equipment Needs Assistive Devices Rolling / Wheeled Walker Plan PT Intervention Plan Bed Mobility,Transfers,Gait, Safety,Therapeutic Exercise PT Plan Frequency BID Duration LOS Discharge Goals Bed Transfer Ability Contact Guard/Hand Hold Sit to Stand Chair Transfer Ability Contact Guard/Hand Hold Ambulation Assistive Device Rolling Walker Ambulation Distance (feet) 25 Discharge Plan PT Discharge Plan Pt would be safe to d/c home when medically stable. Home health PT recommended to improve pt's mobility and return to PLOF. G -code Required No Eval Complexity Eval
--- NOTE | 2021-03-30 09:27 | HMH.OTEV ---
OT Inpatient Evaluation Rehab OT IP Evaluation Start: 03/29/21 14:36 Freq: ONCE Status: Complete Protocol: Document 03/30/21 09:21 JACKIE (Rec: 03/30/21 09:27 [facility] [id number]) Rehab OT IP Assessment Subjective History Pt oriented x 4. Pt agreeable to engage in therapy evaluation. Pt was admitted on 03/29/21 following a L total hip arthroplasty. Pt has a past medical history of Depression, Hyperlipidemia, Hypertension. Pt reports she lived alone at home prior to surgery. Pt claims she was independent with all ADLs and IADLs. She did not require a walker during ambulation. She also still drove. She does have a rolling walker at home if needed. Subjective I had knee trouble first but it was my hip. Objective Patient Orientation Person,Place,Birthday,Year Upper Extremity Gross ROM WFL Bed Mobility bed mobility-scooting,bed mobility - supine/sit,bed mobility - rolling Assist Level Minimal x 1 (25% assist) Transfer Training Sit/Stand Transfer Assist Level Contact Guard/Hand Hold Chair Transfer Ability Contact Guard/Hand Hold Chair Transfer Technique Sit to/from Ambulatory Chair Transfer Assistive Devices Rolling Walker Performing Toilet Hygiene Ability Standby Assistance Overall Commode/Toilet Transfer Ability Standby Assistance Commode/Toilet Transfer Technique Sit to/from Ambulatory Commode/Toilet Transfer Assistive Grab Bars Devices Rehab OT IP prob,goals,plan Problems Date of Evaluation: 03/30/21 OT IP Problems Bed Mobility,Transfers,Gait, Balance,Self care,Safety Rehab Potential Rehab Potential Good Equipment Needs Assistive Devices Rolling / Wheeled Walker Plan OT intervention Plan Bed Mobility,Transfers,Gait, Balance,Self care,Safety, Therapeutic Exercise OT Plan Frequency BID Duration LOS Discharge Goals Bed Mobility Ability Standby Assistance Sit to Stand Chair Transfer Ability Supervision/Stand by Chair Transfer Ability Supervision/Stand by Chair Transfer Technique Sit to/from Ambulatory
--- NOTE | 2021-03-30 10:12 | P.PN_ITS ---
[facility] Anesthesia Record Part II Discharge Time: 14:22 Destination: Medical Surgical Department PACU nurse assessment reviewed?: Yes Patient Condition:: Good Anesthesia Complications:: None Swallowing reflex intact?: Yes Cyanosis?: No Blood Pressure: 107/75 Pulse Rate: 103 Temperature: 97.0 F Mental Status: Alert & Oriented Pain level:: 0 Nausea and/or vomitting:: None Intake, IV Amount: 35
[2021-03-30 10:13] VITALS: BP 107/75; PULSE 103; TEMP 36.1
[2021-03-30 12:00] VITALS: BP 145/68; PULSE 85; RESP 20; TEMP 36.9; O2SAT 95
--- NOTE | 2021-03-30 12:35 | PC.NURSE ---
dr. lugo at bedside
[2021-03-30 16:00] VITALS: BP 136/68; PULSE 78; RESP 20; TEMP 36.6; O2SAT 93
--- NOTE | 2021-03-30 16:37 | HMH.ORTHPN ---
Subjective Date: 03/30/21 Time: 12:30 Principal diagnosis: S/p total hip arthroplasty, left Interval history: Patient is status post LEFT total hip arthroplasty post op day #1. Patient is lying down on the bed and says she is doing well. Patient has minimal pain and says it's well-controlled with medication. No history of any nausea or vomiting. No history of any cough, chest pain, shortness of breath or palpitations. Patient says she is eating and drinking well. No history of any distal tingling or numbness. PN: Obj Ex Vital signs: Temp Pulse Resp BP Pulse Ox 98 F 78 20 136/68 93 L 03/30/21 16:00 03/30/21 16:00 03/30/21 16:00 03/30/21 16:00 03/30/21 16:00 Narrative: Laboratory Results - last 24 hr 03/30/21 05:50: WBC 13.5 H, RBC 3.47 L, Hgb 10.4 L, Hct 31.5 L, MCV 90.9, MCH 30.1, MCHC 33.1, RDW 14.0, Plt Count 281, MPV 8.1, Neut % (Auto) 73.0, Lymph % (Auto) 18.9, Davie % (Auto) 7.1, Eos % (Auto) 0.7, Baso % (Auto) 0.3, Neut # (Auto) 9.9 H, Lymph # (Auto) 2.6, Davie # (Auto) 1.0, Eos # (Auto) 0.1, Baso # (Auto) 0.0 03/30/21 05:50: Sodium 136, Potassium 4.2, Chloride 98, Carbon Dioxide 29, Anion Gap 13.2, BUN 11, Creatinine 0.70, Estimated Creat Clear 59, Estimated GFR 86, Est GFR ( Amer) 104, Glucose 103 H, Calcium 8.9 Intake & Output 03/28/21 03/29/21 03/30/21 03/31/21 11:59 11:59 11:59 11:59 Intake Total 3989 / 3989 120 / 120 Output Total 4350 / 4350 1650 / 1650 Balance -361 / -361 -1530 / -1530 Exam: General appearance: alert, active, awake, no acute distress Cardiovascular: regular rate & rhythm, normal peripheral pulses Respiratory: No respiratory distress noted, speaks in full sentences ABD: soft and non tender Neuro: alert, awake, oriented x 3 Psych: Appropriate mood and affect Genitourinary: Catheter in situ. On examination of the lower extremities the limb lengths are equal. Thigh and calf are soft and nontender. On examination of the LEFT hip the dressings are clean, dry and intact. Distal pulses are 2+. Distal sensation is intact to light touch throughout. No motor deficits noted distally. - Urinary Catheter Management Alcocer Cath placed during this visit: no Progress Note: A&P (1) S/P total hip arthroplasty Status: Acute (2) Primary osteoarthritis of left hip Status: Acute (3) Hypertension Status: Acute (4) Hyperlipidemia Status: Acute (5) Morbid obesity with BMI of 45.0-49.9, adult Status: Acute Assessment and Plan for All Diagnoses:: I have reviewed the clinical findings and progress with the patient. Patient is doing well and reports no problems. Patient is mobilizing well weightbearing as tolerated on the LEFT side with the walker and to continue the same. Continue DVT prophylaxis-recommend DVT prophylaxis for 6 weeks postop. Continue abduction pillow when in bed and continue standard precautions for the posterior approach hip replacement. Discontinue IV fluids and the urinary catheter. Case management looking into discharge planning.
--- NOTE | 2021-03-30 17:03 | PC.NURSE ---
Reassessment completed at this time. Lungs cta and bowel sounds active x4. Pt reports no BM this shift, but has passed gas earlier. iv saline locked per order. no edema noted. pulses 2+ and cap refill <3. Denies numbness/tingling. Dressing to left hip/leg c/d/i. Ice packs applied. Abductor pillow in place. A/o x4. Patient has done well this shift. No needs.
--- NOTE | 2021-03-30 17:52 | PC.NURSE ---
patient is up to the shower at this time
[2021-03-30 20:00] VITALS: BP 100/50; PULSE 94; RESP 18; TEMP 37.6; O2SAT 92
[2021-03-31] VITALS: BP 106/54; PULSE 102; RESP 20; TEMP 37.9; O2SAT 92
[2021-03-31 04:00] VITALS: BP 110/62; PULSE 96; RESP 17; TEMP 37.6; O2SAT 93
--- NOTE | 2021-03-31 06:58 | PC.NURSE ---
pt AxOx4, has remained on room air t/o shift, has complained of pain one time this shift and was treated per OCT, abductor pillow has remained in place while patient has been in bed, ice applied to left hip t/o shift
[2021-03-31 08:00] VITALS: BP 97/53; PULSE 102; RESP 17; O2SAT 93
[2021-03-31 12:54] VITALS: BMI 45.8
--- NOTE | 2021-03-31 13:58 | HMH.DCSUM ---
General - General Admission date:: 03/29/21 Discharge date: 03/31/21 HPI HPI: Patient is a 60-year-old female with advanced degenerative arthritis of her left hip unresponsive to conservative management. She is admitted to hospital following a difficult but uncomplicated primary left total hip arthroplasty couple of days ago. She has had left hip pain for over a year and is gradually getting worse. She localizes the pain to anterior aspect of the left hip with radiation into the left thigh and knee joint. She rates her pain a 6 out of 10 at rest and a 9 out of 10 at its worse. 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 She also reports night pain and sleep disturbance. The hip pain is adversely affecting her job, activities of daily living and quality of life. She is finding it increasingly difficult to walk and also reports night pain and sleep disturbance. She takes arthritis medication (meloxicam), Tylenol and uses ice throughout the day with little to no pain relief. She denies any distal tingling and numbness. Her medical history includes Depression, Hyperlipidemia, hypertension and obesity. She is a non smoker. 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 Please refer to my office note for full details. Hospital Course Hospital Course: Following difficult but uncomplicated primary total hip arthroplasty patient was admitted to the hospital and has progressed well. The postoperative check x-ray was satisfactory with good alignment and fixation of the components. Patient was advised to ambulate weight-bearing as tolerated on the left side. Patient managed this very well using the walker. Her pain is well controlled with oral analgesics. The surgical incision is clean and dry without any active discharge or signs of infection. Distal neurovascular status is intact. No clinical signs of DVT. Patient is eating and drinking well without any problems. Patient is medically stable at the time of discharge and was cleared for discharge by the physical therapist. The dressings were changed on the second postoperative day and the surgical incision is healthy and healing well. No signs of any erythema, induration or discharge noted. Patient was started on Xarelto 10 mg daily for DVT prophylaxis after surgery. The neurovascular status in both lower extremities is intact. Pedal pulses 2+ bilaterally and fully sensate distally. On the day of discharge, the incision is clean and dry. The patient's vital signs have been stable throughout and he is afebrile at the time of discharge. Patient is being discharged home with family and home health for postoperative rehab. Condition at discharge: improved and stable. Treatments and Procedures: Total hip arthroplasty, left hip; date of surgery 03/29/2021. Objective Vital signs: Temp Pulse Resp BP Pulse Ox 99.7 F H 102 H 17 97/53 L 93 L 03/31/21 04:00 03/31/21 08:00 03/31/21 08:00 03/31/21 08:00 03/31/21 08:00 no acute distress, obese - *Routine HEENT Exam Head: Present: normocephalic Eye: Present: EOMI ENT: Present: mucous membranes moist - *Routine Neck Exam Present: supple - *Routine Respiratory Exam Present: CTA bilaterally - *Routine Cardiovascular Exam Present: RRR - *Routine Abdominal Exam Present: soft, normoactive bowel sounds. Absent: tenderness - *Routine Extremities Exam Comments: On examination of the lower extremities the limb lengths are equal. Thigh and calf are soft and nontender. On examination of the left hip the dressings are clean, dry and intact. The dressings are changed by me. There is no soakage of the dressings. The incision looks clean and healthy. No evidence of any infection or other complications is noted. Distal pulses are 2+. Distal sensation is intact to light touch throughout. No motor deficits noted distally. - *Routine Skin Exam Present: warm. Absent: rash - *R
--- NOTE | 2021-03-31 14:12 | SW/DCPLANNER ---
DID A FOLLOW UP CALL WITH [facility] WHO ACCEPTED THE REFERRAL YESTERDAY PENDING CONTRACT AGREEMENT WITH HER [employer]TH[employer] AND THEY ARE NOT IN NETWORK SO I SENT IT TO [facility] AND THEY ACCEPTED IT AND SERVICES TO START IN THE AM...I WENT IN TO SPOKE WITH PATIENT AND SHE WAS IN AGREEMENT OF THE PLAN...
== END 2021-03-31 15:25 | disposition home or self-care (01) ==
LOC: 2ND 07:53
PROVIDERS: Admitting Provider Orthopaedic Surgery; PCP Internal Medicine; Visit Provider Orthopaedic Surgery
PROC: (CPT 27130; principal; 2021-03-29 09:30)
DX: M16.12 Unilateral primary osteoarthritis, left hip (principal); I10 Essential (primary) hypertension; E78.5 Hyperlipidemia, unspecified; E66.01 Morbid (severe) obesity due to excess calories; Z68.42 Body mass index [BMI] 45.0-49.9, adult
CPT/HCPCS: 27130; 36415; 73502; 80048; 81001; 85025; 96374; 97110; 97116; 97162; 97166; 97530; 97535; C1713; C1776; G0378; J2405; J2710; J3370; P9047

== ENCOUNTER → 2021-04-13 09:50 | Outpatient (CLI) | payer BC, SELFPAY ==
--- NOTE | 2021-04-13 09:57 | XR_ITS ---
PROCEDURE: XR HIP LT 2-3V W/PELVIS CLINICAL INDICATION: left total hip, sx 03/29/21 COMPARISON: CR XR HIP LT 2-3V W/PELVIS from 03/27/2021 CR XR HIP LT 2-3V W/PELVIS from 03/29/2021 FINDINGS: Status post total left hip replacement with good alignment and no evidence of orthopedic complication. Mild osteoarthritic changes are present involving the right hip IMPRESSION: Good alignment status post left total hip replacement Dictated by: Minesh Morgan MD 04/13/2021 11:46 Minesh Morgan MD in [place] 04/13/2021 11:46
== END ==
PROVIDERS: PCP Internal Medicine; Visit Provider Orthopaedic Surgery
DX: M25.552 Pain in left hip (principal); Z96.642 Presence of left artificial hip joint
CPT/HCPCS: 73502

== ENCOUNTER → 2021-04-16 11:37 | Outpatient (CLI) | payer BC, SELFPAY ==
[2021-04-16 12:12] LABS: D-Dimer 2.49 ug/mL (0.0-0.5)
[2021-04-16 12:21] LABS: Basophils # 0.1 K/mm3 (0-0.2); Basophils % 0.9 % (0.1-2.0); Eosinophils # 0.9 K/mm3 (0.0-0.4); Eosinophils % 9.4 % (0.1-12.0); Hematocrit 34.2 % (37.0-47.0); Hemoglobin 10.4 g/dL (12.2-16.2); Lymphocytes # 2.8 K/mm3 (0.7-4.5); Lymphocytes % 27.8 % (10-50); Mean Corpuscular HGB Conc 30.3 g/dL (31.8-35.4); Mean Corpuscular Hemoglobin 29.3 pg (27.0-31.2); Mean Corpuscular Volume 96.6 fl (81-99); Mean Platelet Volume 7.1 fl (7.4-10.4); Monocytes # 0.6 K/mm3 (0.1-1.0); Monocytes % 6.5 % (1.7-9.3); Neutrophils # 5.5 K/mm3 (1.8-7.8); Neutrophils % 55.5 % (37.0-80.0); Platelet Count 502 K/mm3 (142-424); Red Blood Count 3.54 M/mm3 (4.20-5.40); Red Cell Distribution Width 15.4 % (11.5-17.5); White Blood Count 9.9 K/mm3 (4.8-10.8)
[2021-04-16 12:47] LABS: Erythrocyte Sedimentation Rate 86 mm/hr (0-30)
[2021-04-16 13:06] LABS: C-Reactive Protein 7.7 mg/L (0-4)
== END ==
PROVIDERS: Visit Provider Orthopaedic Surgery
DX: M25.552 Pain in left hip (principal); Z96.642 Presence of left artificial hip joint
CPT/HCPCS: 36415; 85025; 85378; 85651; 86140

== ENCOUNTER 2021-04-18 17:21 | Observation (INO) | payer BC, SELFPAY ==
[2021-04-18 17:48] VITALS: BMI 46.2
[2021-04-18 17:50] VITALS: BP 131/73; PULSE 116; RESP 18; TEMP 36.9; O2SAT 97; BMI 46.1
--- NOTE | 2021-04-18 18:37 | PC.NURSE ---
DIRECT ADMIT, 22* TO [facility]. NO ORDERS YET. VSS.
[2021-04-18 20:00] VITALS: BP 150/83; PULSE 94; RESP 18; TEMP 36.5; O2SAT 97
[2021-04-18 20:02] LABS: Coronavirus 19, PCR Not Detected (NotDetected); Influenza A, PCR Not Detected (NotDetected); Influenza B, PCR Not Detected (NotDetected)
--- NOTE | 2021-04-18 23:03 | HMH.ORTHHP ---
*Admission Date: 04/18/21 *Reason for consult:: Hematoma left hip, status post total hip arthroplasty *History of present illness: Patient is a 60-year-old female who underwent an uneventful primary left total hip arthroplasty about 3 weeks ago (on 03/29/21). Following removal of the Dermabond Prineo dressing at 2 weeks postop follow-up appointment, she developed intermittent drainage of altered blood from the mid part of the incision about 16 days after surgery.? I have seen the patient in the office at 2 weeks after surgery at which point there were no problems with the wound. Couple of days after that appointment, she reports leaking altered blood from a small opening in the mid part of the incision. Subsequently, I have seen her in the office on Monday at which point there was no drainage. She did have a subcutaneous hematoma but no signs of infection were noted. However, she reports further drainage of altered blood over the weekend. Following discussion with the patient over telephone, a decision was made to admit her and perform surgical evacuation of the hematoma. A limited revision total hip arthroplasty with debridement and exchange of the easily removable implants may be needed if there is any suspicion of infection during surgery.? There is no history of any fevers, chills or rigors.? Patient says she is feeling well within herself and has little pain which is well controlled with as needed pain medication.? She is eating and drinking well. There is no history of any distal tingling or numbness. Following her office visit couple of days ago, I have started her on oral Keflex and clindamycin as a precautionary measure. She is also on oral Xarelto 10 mg daily and has taken the last dose yesterday. Her medical history includes Depression, Hyperlipidemia, hypertension and obesity. She is a non smoker. 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 [facility] History I have reviewed the patient's past medical history: Yes Medical History: Reports:: Depression, Hyperlipidemia, Hypertension Denies:: Cancer, Diabetes Mellitus Type 1, Diabetes Mellitus Type 2, Internal Pacemaker, MRSA, Seizures *Have you ever received a pneumonia vaccine?: No *Have you received a flu vaccine this season?: No Other Medical History: Reports: Arthritis. Denies: Blood Transfusion Reaction Laterality Cases: Bilateral: Carpal Tunnel Release Other Surgeries: Yes: Hysterectomy-Total, Other. No: Pacemaker Amputation: No Fractures: No - *Social History Last grade of school completed: High school graduate Smoking Status: Former smoker Alcohol Intake: former Alcohol Intake Frequency:: a few times a week Substance Use Type: other *Occupational Status:: employed Housing: house Household Members: none *Travel in the last 8 weeks: None - Psychiatric History Pschychiatric History:: Reports:: Depression Family Hx:: Hypertension, Stroke, Diabetes, Heart Attack, Cancer Review of Systems - Review of Systems Review of systems:: pertinent systems reviewed and negative unless documented below - Constitutional Denies chills, Denies fever(s), Denies malaise - Eyes Denies change in vision - ENT Denies abnormal hearing, Denies change in voice - *Cardiovascular Denies chest pain, Denies shortness of breath - *Respiratory Denies chest congestion, Denies cough - *Gastrointestinal Denies abdominal pain, Denies change in bowel habits - *Musculoskeletal Reports abnormal walking, Reports joint pain - *Neurologic Reports abnormal walking, Denies seizure-like activity, Denies dizziness, Denies tingling/numbness/burning sensations - Endocrine Denies cold intolerance, Denies heat intolerance Meds Home Medications Medication Instructions Recorded Confirmed Type simvastatin 80 mg tablet 80 mg PO HS 08/30/18 04/16/21 History RX: Citalopram Hydrobromide 40 mg PO DAILY 03/29/21 04/16/21 History [Citalopram 40mg Tablet] RX: Omeprazole [O
[2021-04-19] VITALS (21 sets, daily range): BP systolic 112–171; BP diastolic 62–93; PULSE 85–110; RESP 12–19; TEMP 36.4–37.6; O2SAT 94–100; BMI 46.2
--- NOTE | 2021-04-19 04:11 | PC.NURSE ---
A&OX4. TOLERATING RA WELL. PT HAS HAD NO C/O PAIN THUS FAR THIS SHIFT. MD LENZ AT BEDSIDE APPLYING NEW DRESSING TO L HIP. NO BLEEDING NOTED. DRESSING CDI. PT HAS BEEN NPO SINCE MIDNIGHT, TOLERATING WELL. CONSENT FOR SURGERY SIGNED. PT HAS RESTED WELL T/O SHIFT. VSS WILL CONTINUE TO MONITOR.
[2021-04-19 06:37] LABS: Alanine Aminotransferase 26 U/L (12-78); Albumin Level 3.8 g/dl (3.5-5.0); Albumin/Globulin Ratio 1.2 (1.1-1.8); Alkaline Phosphatase 72 U/L (38-126); Anion Gap 11.9 mEq/L (5-15); Aspartate Amino Transferase 33 U/L (14-36); Bilirubin,Total 0.2 mg/dl (0.2-1.3); Blood Urea Nitrogen 11 mg/dl (7-17); Carbon Dioxide 29 mmol/L (22.0-30.0); Chloride 100 mmol/L (98-107); Creatinine Clearance Estimated 83 mL/min (50-200); Estimated Glomerular Filt Rate 126 ml/min (>60); GFR (African American) 153 ML/MIN (>60); Globulin 3.1 g/dL (1.3-3.2); Glucose 95 mg/dl (74-100); Potassium 3.9 mmoL/L (3.5-5.1); Sodium 137 mmol/L (136-145); Total Protein,Serum 6.9 g/dl (6.3-8.2)
[2021-04-19 06:55] LABS: Basophils # 0.1 K/mm3 (0-0.2); Basophils % 0.9 % (0.1-2.0); Eosinophils # 1.1 K/mm3 (0.0-0.4); Eosinophils % 11.5 % (0.1-12.0); Lymphocytes # 2.7 K/mm3 (0.7-4.5); Lymphocytes % 29.5 % (10-50); Mean Corpuscular HGB Conc 31.1 g/dL (31.8-35.4); Mean Corpuscular Hemoglobin 29.8 pg (27.0-31.2); Mean Corpuscular Volume 95.9 fl (81-99); Mean Platelet Volume 7.1 fl (7.4-10.4); Monocytes # 0.7 K/mm3 (0.1-1.0); Monocytes % 7.5 % (1.7-9.3); Neutrophils # 4.7 K/mm3 (1.8-7.8); Neutrophils % 50.5 % (37.0-80.0); Platelet Count 441 K/mm3 (142-424); Red Blood Count 3.34 M/mm3 (4.20-5.40); Red Cell Distribution Width 15.3 % (11.5-17.5); White Blood Count 9.3 K/mm3 (4.8-10.8)
--- NOTE | 2021-04-19 12:28 | HMH.PHAINT ---
MEDICATION RECONCILIATION COMPLETED ON PATIENT USING EXTERNAL FILL HISTORY FROM PHARMACY AND DISCHARGE SUMMARY FROM PREVIOUS ADMISSION. -JB BERGMAND
--- NOTE | 2021-04-19 12:29 | HMH.PHAVTE ---
[facility] Pharmacy VTE Monitoring - Patient Demographics Admission date: 04/18/21 Report Date: 04/19/21 Time: 12:29 Allergies/Adverse Reactions: Patient Allergies No Known Allergies Allergy (Verified 04/16/21 11:07) Height: 1.5 m Weight: 104 kg Patient Problems: Current Active Problems Hypertension (Chronic) Hyperlipidemia (Chronic) S/P total hip arthroplasty (Acute) Morbid obesity with BMI of 45.0-49.9, adult (Chronic) Postoperative hematoma (Acute) - VTE Risk Labs: VTE Related Lab Results Hgb 10.0 g/dL (12.2-16.2) L 04/19/21 05:53 Hct 32.0 % (37.0-47.0) L 04/19/21 05:53 Plt Count 441 K/mm3 (142-424) H 04/19/21 05:53 BUN 11 mg/dl (7-17) 04/19/21 05:53 Creatinine 0.50 mg/dl (0.52-1.04) L 04/19/21 05:53 Estimated Creat Clear 83 mL/min (50-200) 04/19/21 05:53 - Prophylaxis VTE Prophylaxis Ordered?: Yes Types of VTE Prophylaxis: IPCS Thigh High Location of Applied Device: Bilateral Lower Extremeties, Not Applicable
--- NOTE | 2021-04-19 12:41 | HMH.ANESI ---
[facility] Anesthesia Record Part I Intake, IV Amount: 1,500 Estimated blood loss (mL): 150 Urine output (mL): 0 Blood Pressure: 164/87 SaO2: 98 Pulse Rate: 110 Respiratory Rate: 12 Temperature: 97.5 F Patient is:: Awake, Stable Stable to PACU at:: 12:40
--- NOTE | 2021-04-19 12:44 | P.PN_ITS ---
[facility] Anesthesia Checklist - Structural Data Admitted From: Home Planned Operative Procedure/s: evac of hematoma Consent for Planned Operative Procedure(s) Verified: Yes - Additional verifications Anesthesia Reactions: No Hx Blood Transfusions: No Blood Transfusion Reaction: No - Airway Assessment C-Spine Mobility Assessed: Yes TMJ Mobility Assessed: Yes Dentition: Good Dentition - Neurological Assessment Level of Consciousness: Awake, Alert, Appropriate - Anesthesia Plan Anesthesia Risk discussed: Yes Anesthesia Plan: Verified ASA Class: III Anesthesia Type: General [facility] History I have reviewed the patient's past medical history: Yes Medical History: Reports:: Depression, Hyperlipidemia, Hypertension Denies:: Cancer, Diabetes Mellitus Type 1, Diabetes Mellitus Type 2, Internal Pacemaker, MRSA, Seizures *Have you ever received a pneumonia vaccine?: No *Have you received a flu vaccine this season?: No Other Medical History: Reports: Arthritis. Denies: Blood Transfusion Reaction Anesthesia experience/problems:: none Laterality Cases: Bilateral: Carpal Tunnel Release Other Surgeries: Yes: Hysterectomy-Total, Other. No: Pacemaker Amputation: No Fractures: No - *Social History Last grade of school completed: High school graduate Smoking Status: Former smoker Alcohol Intake: former Alcohol Intake Frequency:: a few times a week Substance Use Type: other *Occupational Status:: employed Housing: other Household Members: none *Travel in the last 8 weeks: None - Psychiatric History Pschychiatric History:: Reports:: Depression Family Hx:: Hypertension, Stroke, Diabetes, Heart Attack, Cancer
--- NOTE | 2021-04-19 14:18 | HMH.ANESII ---
[facility] Anesthesia Record Part II Discharge Time: 13:07 Destination: Medical Surgical Department PACU nurse assessment reviewed?: Yes Patient Condition:: Good Anesthesia Complications:: None Swallowing reflex intact?: Yes Cyanosis?: No Blood Pressure: 112/62 Pulse Rate: 88 Temperature: 97.5 F Mental Status: Alert & Oriented Pain level:: 0 Nausea and/or vomitting:: None Intake, IV Amount: 0
--- NOTE | 2021-04-19 14:41 | HMH.PHACONS ---
- Pharmacy Consult Date: 04/19/21 Time: 14:41 Referring provider: DR. LENZ Reason for Consult:: VANCOMYCIN DOSING Allergies and ADEs:: Allergies Allergy/AdvReac Type Severity Reaction Status Date / Time No Known Allergies Allergy Verified 04/16/21 11:07 Home Medications:: Home Medications Medication Instructions Recorded Confirmed Type simvastatin 80 mg tablet 80 mg PO HS 08/30/18 04/19/21 History Citalopram Hydrobromide 40 mg PO DAILY 03/29/21 04/19/21 History [Citalopram 40mg Tablet] Omeprazole [Omeprazole 20mg 20 mg PO DAILY 03/29/21 04/19/21 History Capsule] hydroCHLOROthiazide [HCTZ 25mg 25 mg PO DAILY 03/29/21 04/19/21 History tab] lisinopriL [Lisinopril] 40 mg PO DAILY 03/29/21 04/19/21 History Hydrocod/Acet 5/325 mg [[place] 1 - 2 tab PO Q6HP PRN #60 tab 03/31/21 04/19/21 Rx 5/325mg tablet] Docusate Sodium [Docusate Sodium 100 mg PO BID 04/19/21 04/19/21 History 100mg Cap] Ferrous Sulfate [Ferrous Sulfate 325 mg PO BID 04/19/21 04/19/21 History 325mg Tablet] Rivaroxaban [Xarelto 10mg tablet] 10 mg PO QPMWITHMEAL 04/19/21 04/19/21 History cephALEXin [cephALEXin 500mg 500 mg PO QID 04/19/21 04/19/21 History capsule*] clindamycin HCL [Clindamycin HCl] 300 mg PO QID 04/19/21 04/19/21 History Height: 1.5 m Weight: 104 kg Laboratory Results:: Laboratory Results - last 24 hr 04/18/21 19:50: SARS-CoV-2 (PCR) Not detected, Influenza A Untype (PCR) Not detected, Influenza Type B (PCR) Not detected 04/19/21 05:53: WBC 9.3, RBC 3.34 L, Hgb 10.0 L, Hct 32.0 L, MCV 95.9, MCH 29.8, MCHC 31.1 L, RDW 15.3, Plt Count 441 H, MPV 7.1 L, Neut % (Auto) 50.5, Lymph % (Auto) 29.5, Levy % (Auto) 7.5, Eos % (Auto) 11.5, Baso % (Auto) 0.9, Neut # (Auto) 4.7, Lymph # (Auto) 2.7, Levy # (Auto) 0.7, Eos # (Auto) 1.1 H, Baso # (Auto) 0.1 04/19/21 05:53: Sodium 137, Potassium 3.9, Chloride 100, Carbon Dioxide 29, Anion Gap 11.9, BUN 11, Creatinine 0.50 L, Estimated Creat Clear 83, Estimated GFR 126, Est GFR ( Amer) 153, Glucose 95, Calcium 9.0, Total Bilirubin 0.2, AST 33, ALT 26, Alkaline Phosphatase 72, Total Protein 6.9, Albumin 3.8, Globulin 3.1, Albumin/Globulin Ratio 1.2 04/19/21 05:53: Blood Type A Positive, Antibody Screen Negative Medical History: Reports:: Depression, Hyperlipidemia, Hypertension Denies:: Cancer, Diabetes Mellitus Type 1, Diabetes Mellitus Type 2, Internal Pacemaker, MRSA, Seizures Assessment and Plan (1) Postoperative hematoma Status: Acute Qualifiers: Surgical complication system/body Area: musculoskeletal system Procedure type: musculoskeletal Qualified Code(s): M96.840 - Postprocedural hematoma of a musculoskeletal structure following a musculoskeletal system procedure Category: Surgical (2) S/P total hip arthroplasty Start date: 03/29/21 Status: Acute Qualifiers: Laterality: left Qualified Code(s): Z96.642 - Presence of left artificial hip joint Category: Surgical Code(s): Z96.649 - Presence of unspecified artificial hip joint (3) Hyperlipidemia Status: Chronic Category: Medical Code(s): E78.5 - Hyperlipidemia, unspecified (4) Hypertension Status: Chronic Category: Medical Code(s): I10 - Essential (primary) hypertension (5) Morbid obesity with BMI of 45.0-49.9, adult Status: Chronic Category: Medical Code(s): E66.01 - Morbid (severe) obesity due to excess calories; Z68.42 - Body mass index [BMI] 45.0-49.9, adult - Assessment and plan all Dx Assessment and Plan for all problems:: Age: 60 yo Serum creatinine: 0.8 mg/dL Height: 59.1 Inches Weight (kg): 104 Assessment: IBW (kg): 44.82 Dosing wt(kg): 104 Estimated Creatinine clearance (ml/min): 53.6 CRCL method: Cockcroft and Gault using ibw(default). Drug selected: Vancomycin Loading dose (mg): 0 Vd (liters): 83.2 (factor used: 0.8 L/kg) Marcelo (hr-1): 0.049 Half life (hrs): 1
--- NOTE | 2021-04-19 15:22 | HMH.OTEV ---
OT Inpatient Evaluation Rehab OT IP Evaluation Start: 04/19/21 13:29 Freq: ONCE Status: Complete Protocol: Document 04/19/21 15:10 [facility] (Rec: 04/19/21 15:21 [facility] [id number]) Rehab OT IP Assessment Subjective History Pt oriented x 3 on arrival. Pt agreeable to engage in therapy evaluation. Pt was admitted on 04/18/21 due to leaking at incision and hematoma. Pt had a Left total hip arthroplasty on 03/29/21. Pt returned home and was completing home health therapy . Pt noticed an opening in the middle of the incision that started leaking blood ~16 days after surgery. Pt was admitted for surgical evacuation of hematoma; this was completed today. Pt reports she lives at home alone. Normally she is independent with all ADLs and IADLs. She still works fulltime. She was back home alone after the hip surgery using rolling walker. Subjective I need to use the bathroom please. Pt resting in bed on arrival. Pt completed bed mobility and went from supine to sitting at eob with SBA. Pt stood from eob and engaged in functional transfer from bed to bathroom with cga and rolling walker. Pt sat down on toilet with cga. Pt stood from toilet with grab bars and cga. Pt was independent with toileting hygiene. Pt then transferred back to bed with cga and rolling walker. Pt sat down at eob and went from sitting to supine with sba. Pt was left with call adan and all other needs in reach. Objective Patient Orientation Person,Place,Birthday Upper Extremity Gross ROM WFL Bed Mobility bed mobility-scooting,bed mobi
--- NOTE | 2021-04-19 17:33 | HMH.OPNOTE ---
Date of procedure: 04/19/21 Pre-op Diagnosis:: 1. Postoperative hematoma, left hip 2. Status post total hip arthroplasty, left hip Post-op Diagnosis:: Same Procedure performed:: 1. Evacuation of subcutaneous hematoma, left hip 2. Debridement, left hip Surgeon:: Dev Harris MD Tax Lawyer(s):: Tracy Ruiz PA-C PHARMACY SPECIALIST:: Other (Ren Royal) Anesthesia: GETA Estimated blood loss (mL): 50 Clinical Note:: Patient is a 60-year-old female who underwent an uneventful primary left total hip arthroplasty about 3 weeks ago (on 03/29/21). Following removal of the Dermabond Prineo dressing at 2 weeks postop follow-up appointment, she developed intermittent drainage of altered blood from the mid part of the incision about 16 days after surgery. I have seen the patient in the office at 2 weeks after surgery at which point there were no problems with the wound. Couple of days after that appointment, she reports leaking altered blood from a small opening in the mid part of the incision. Subsequently, I have seen her in the office on Monday at which point there was no drainage. She did have a subcutaneous hematoma but no signs of infection were noted. However, she reports further drainage of altered blood over the weekend. Following discussion with the patient over telephone, a decision was made to admit her and perform surgical evacuation of the hematoma. A limited revision total hip arthroplasty with debridement and exchange of the easily removable implants may be needed if there is any suspicion of infection during surgery. There is no history of any fevers, chills or rigors. Patient says she is feeling well within herself and has little pain which is well controlled with as needed pain medication. She is eating and drinking well. There is no history of any distal tingling or numbness. Following her office visit couple of days ago, I have started her on oral Keflex and clindamycin as a precautionary measure. She is also on oral Xarelto 10 mg daily and has taken the last dose yesterday. Her medical history includes Depression, Hyperlipidemia, hypertension and obesity. She is a non smoker. 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 Operative findings:: Intraoperatively, a large hematoma noted in the subcutaneous tissue with both well-formed clots and altered liquid blood/serum.? The tissue otherwise appeared healthy including the deeper layers. The fascia laura closure is healed and no obvious communication or discharge from the deeper layers noted. No extension through the deeper tissue was noted.? No lucero pus or obvious evidence of infection was noted.? Aerobic and anaerobic culture swabs and tissue samples were obtained for culture and sensitivity. Operative note:: The patient was brought to the operating room and a general anesthesia was administered by the global upstream marketing manager. The patient was then positioned in the RIGHT lateral decubitus position with the LEFT hip facing up. We used EVRGRon hip positioner for this. All the bony prominences were appropriately padded. The previous incision has healed well and no active discharge or drainage of hematoma is noted today. The LEFT hip was then prepped with isopropyl alcohol followed by chlorhexidine and draped in the usual sterile fashion. The entire operative team wore isolation suits and the Operating Room traffic was controlled. The perineum and the operative site were sealed off with Ioban drape. A preprocedure timeout was performed as per hospital protocol identifying the patient, correct surgery and correct site.? Prophylactic antibiotics (IV vancomycin and Ancef) were administered by the global upstream marketing manager. The previous skin incision was opened and deepened through the subcutaneous tissue.? As much as possible, we removed the previous suture material from the wound.? A large amount of clotted blood as well as some liquefied blood was noted in the subcutaneous fat, which was extending
[2021-04-20] VITALS (7 sets, daily range): BP systolic 98–165; BP diastolic 50–77; PULSE 76–96; RESP 15–19; TEMP 36.4–37.2; O2SAT 96–99
[2021-04-20 06:13] LABS: Basophils # 0.1 K/mm3 (0-0.2); Basophils % 0.5 % (0.1-2.0); Eosinophils # 0.3 K/mm3 (0.0-0.4); Eosinophils % 2.4 % (0.1-12.0); Hematocrit 29.7 % (37.0-47.0); Hemoglobin 9.1 g/dL (12.2-16.2); Lymphocytes # 2.5 K/mm3 (0.7-4.5); Lymphocytes % 23.9 % (10-50); Mean Corpuscular HGB Conc 30.7 g/dL (31.8-35.4); Mean Corpuscular Hemoglobin 29.4 pg (27.0-31.2); Mean Corpuscular Volume 95.6 fl (81-99); Mean Platelet Volume 6.8 fl (7.4-10.4); Monocytes # 0.7 K/mm3 (0.1-1.0); Monocytes % 6.9 % (1.7-9.3); Neutrophils # 6.9 K/mm3 (1.8-7.8); Neutrophils % 66.3 % (37.0-80.0); Platelet Count 412 K/mm3 (142-424); Red Blood Count 3.11 M/mm3 (4.20-5.40); Red Cell Distribution Width 15.2 % (11.5-17.5); White Blood Count 10.4 K/mm3 (4.8-10.8)
[2021-04-20 06:46] LABS: Blood Urea Nitrogen 9 mg/dl (7-17); Calcium 8.8 mg/dl (8.4-10.2); Carbon Dioxide 30 mmol/L (22.0-30.0); Chloride 101 mmol/L (98-107); Creatinine Clearance Estimated 83 mL/min (50-200); Estimated Glomerular Filt Rate 126 ml/min (>60); GFR (African American) 153 ML/MIN (>60); Glucose 102 mg/dl (74-100); Sodium 133 mmol/L (136-145)
--- NOTE | 2021-04-20 10:30 | HMH.PTEV ---
Physical Therapy Evaluation Rehab PT IP Evaluation Start: 04/19/21 13:29 Freq: ONCE Status: Active Protocol: Document 04/20/21 10:09 [facility] (Rec: 04/20/21 10:30 [facility] [id number]) Subjective/History History History Pt is 60 year old female admitted to [facility] s/p L hip hematoma secondary to L CHERYL procedure a few weeks ago. Pt reports living alone in one level home and ambulating with a rolling walker since her L CHERYL. Pt states she has been receiving home health PT since L CHERYL and has been getting around her home well. Eval completed by Radha Silva, NATE . Subjective Subjective Pt reports feeling well this morning with minimal L hip pain. Rehab PT IP Eval Objective Appearance Patient Behavior Appropriate,Cooperative Patient Orientation Place,Name,Birthday,Year Difficulty following instructions none Speech Pattern Clear,Appropriate,Coherent Ambulation Patient Able to Ambulate Yes Ambulation Observation IP General Gait Pattern Observation Wide Based Gait Ambulation Distance (feet) 50 Ambulation Assistive Device Rolling Walker Ambulation Ability Contact Guard/Hand Hold Balance Ability to Arise Able, uses arms to help Sitting Balance Steady, safe Standing Balance Steady, wide stance Dynamic Sitting Balance Ability Good Dynamic Standing Balance Ability Good Transfers Bed Transfer Ability Contact Guard/Hand Hold Chair Transfer Ability Contact Guard/Hand Hold Sit to Stand Chair Transfer Ability Contact Guard/Hand Hold ROM All Extremities PT ROM Status WFL MMT All Extremities PT MMT WFL Rehab PT IP prob,goals,plan Problems Date of Evaluation: 04/20/21 PT IP Problems Gait Rehab Potential Rehab Potential Good Equipment Needs Assistive Devices Rolling / Wheeled Walker Plan PT Intervention Plan Gait,Therapeutic Exercise PT Plan Frequency BID Duration LOS Discharge Goals Bed Transfer Ability Contact Guard/Hand Hold Sit to Stand Chair Transfer Ability Contact Guard/Hand Hold Ambulation Assistive Device Rolling Walker Ambulation Distance (feet) 60 Discharge Plan PT Discharge Plan Pt would be safe to d/c home
--- NOTE | 2021-04-20 13:59 | SW/DCPLANNER ---
Addendum entered by Acacia Weber 04/21/21 06:43: FINAL CULTURES STILL PENDING... Original Note: PATIENT ADMITTED TO [facility] WITH A POST OP HEMATOMA, RECENTLY HAD A HIP SURGERY ON 03/29 AND PATIENT HAS HAD ISSUES WITH DRAINAGE SINCE THEN.. SHE WAS ADMITTED FOR A SURGICAL WASHINGS AND BLOOD CULTURES.. CURRENTLY SHE STILL HAS A DRAIN IN AND RECEIVING IV ANTIBIOTICS..WE ARE WAITING FOR BLOOD CULTURES TO SEE IF PATIENT IS ON THE RIGHT ANTIBIOTIC OR IF SHE IS GOING TO NEED TO HAVE A TOTAL HIP SURGERY AGAIN..ALL WILL BE PENDING CULTURES. SHE IS ALREADY ESTABLISHED WITH [facility] HOME HEALTH [facility]Y AND PLANS TO RETURN BACK HOME WITH THEIR SERVICES TO CONTINUE..
--- NOTE | 2021-04-20 16:25 | HMH.ORTHPN ---
Subjective Date: 04/20/21 Time: 12:00 Principal diagnosis: Status post I&D hematoma left hip; status post left CHERYL Interval history: Patient is status post LEFT hip evacuation of hematoma (following recent total hip arthroplasty 3 weeks ago), post op day #1. Patient is lying down on the bed and says she is doing well. Patient has pain over the surgical site and rates it an 8 out of 10 at its worse. She says it's well-controlled with as needed pain medication. No history of any nausea or vomiting. No history of any cough, chest pain, shortness of breath or palpitations. Patient says she is eating and drinking well. No history of any distal tingling or numbness. PN: Obj Ex Vital signs: Temp Pulse Resp BP Pulse Ox 97.5 F L 95 H 18 109/50 L 97 04/20/21 12:00 04/20/21 12:00 04/20/21 12:00 04/20/21 12:00 04/20/21 12:00 Narrative: Laboratory Results - last 24 hr 04/20/21 05:45: WBC 10.4, RBC 3.11 L, Hgb 9.1 L, Hct 29.7 L, MCV 95.6, MCH 29.4, MCHC 30.7 L, RDW 15.2, Plt Count 412, MPV 6.8 L, Neut % (Auto) 66.3, Lymph % (Auto) 23.9, [place] % (Auto) 6.9, Eos % (Auto) 2.4, Baso % (Auto) 0.5, Neut # (Auto) 6.9, Lymph # (Auto) 2.5, [place] # (Auto) 0.7, Eos # (Auto) 0.3, Baso # (Auto) 0.1 04/20/21 05:45: Sodium 133 L, Potassium 4.0, Chloride 101, Carbon Dioxide 30, Anion Gap 6.0, BUN 9, Creatinine 0.50 L, Estimated Creat Clear 83, Estimated GFR 126, Est GFR ( Amer) 153, Glucose 102 H, Calcium 8.8 Microbiology 04/19/21 12:05 Hip,Left - Wound Gram Stain - Final Intake & Output 04/18/21 04/19/21 04/20/21 04/21/21 11:59 11:59 11:59 11:59 Intake Total 0 / 0 3192 / 3192 280 / 280 Output Total 150 / 150 100 / 100 Balance 0 / 0 3042 / 3042 180 / 180 Weight 229 lb 4.492 oz 229 lb 4.492 oz Exam: General appearance: alert, active, awake, no acute distress Cardiovascular: regular rate & rhythm, normal peripheral pulses Respiratory: No respiratory distress noted, speaks in full sentences ABD: soft and non tender Neuro: alert, awake, oriented x 3 Psych: Appropriate mood and affect On examination of the lower extremities the limb lengths are equal. Thigh and calf are soft and nontender. On examination of the LEFT hip the dressings are clean, dry and intact. The surgical drain is in place and draining serosanguineous fluid. No soakage of dressings noted. Distal pulses are 2+. Distal sensation is intact to light touch throughout. No motor deficits noted distally. Progress Note: A&P (1) Postoperative hematoma Status: Acute (2) S/P total hip arthroplasty Status: Acute (3) Hyperlipidemia Status: Chronic (4) Hypertension Status: Chronic (5) Morbid obesity with BMI of 45.0-49.9, adult Status: Chronic Assessment and Plan for All Diagnoses:: I have reviewed the clinical findings and progress with the patient. Patient is doing well and reports no new problems. Gram stain of intraoperative culture samples have showed few gram-positive cocci. This is concerning for infection and I would like to await definitive culture results before considering any further surgery. If the culture results are positive, I would like to take her back to the OR for debridement of the hip joint with the limited revision. In the meantime, continue IV antibiotics as ordered. Patient is mobilizing well weightbearing as tolerated on the LEFT side with the walker and to continue the same. I would withhold Xarelto for now as there is a possibility of further surgery in the next few days. Continue abduction pillow when in bed and continue standard precautions for the posterior approach hip replacement.
--- NOTE | 2021-04-20 17:57 | PC.NURSE ---
Pt has been pleasant and cooperative this shift. A&O X4. No complaints of pain or SOA. Pt is on room air with sats. >90%. Lungs CTA. No edema noted. LT hip dressing with ELMO drain in place is C/D/I. Ice pack in place. Abductor pillow in place while pt is in bed. Pt uses the walker and stand-by assistance to ambulate. Urine is clear and yellow. No BM this shift. Appetite is good and pt eats the majority of all meals. 20 G peripheral IV in the RT AC is patent and infusing LR @ 75 ML/HR. VSS. Call light within reach. Will continue to monitor.
[2021-04-21 04:00] VITALS: BP 101/55; PULSE 79; RESP 18; TEMP 37; O2SAT 97
[2021-04-21 05:10] VITALS: BMI 46.2
[2021-04-21 06:25] LABS: Basophils # 0.1 K/mm3 (0-0.2); Basophils % 0.8 % (0.1-2.0); Eosinophils % 12.3 % (0.1-12.0); Hematocrit 28.9 % (37.0-47.0); Hemoglobin 8.9 g/dL (12.2-16.2); Lymphocytes # 2.5 K/mm3 (0.7-4.5); Lymphocytes % 30.6 % (10-50); Mean Corpuscular HGB Conc 30.8 g/dL (31.8-35.4); Mean Corpuscular Hemoglobin 29.9 pg (27.0-31.2); Mean Platelet Volume 6.9 fl (7.4-10.4); Monocytes # 0.5 K/mm3 (0.1-1.0); Monocytes % 6.2 % (1.7-9.3); Neutrophils % 50.1 % (37.0-80.0); Platelet Count 365 K/mm3 (142-424); Red Blood Count 2.98 M/mm3 (4.20-5.40); Red Cell Distribution Width 15.1 % (11.5-17.5)
[2021-04-21 06:43] LABS: Alanine Aminotransferase 26 U/L (12-78); Albumin Level 3.3 g/dl (3.5-5.0); Albumin/Globulin Ratio 1.2 (1.1-1.8); Alkaline Phosphatase 60 U/L (38-126); Anion Gap 8.7 mEq/L (5-15); Aspartate Amino Transferase 40 U/L (14-36); Bilirubin,Total 0.2 mg/dl (0.2-1.3); Blood Urea Nitrogen 13 mg/dl (7-17); Calcium 8.9 mg/dl (8.4-10.2); Carbon Dioxide 31 mmol/L (22.0-30.0); Chloride 99 mmol/L (98-107); Creatinine Clearance Estimated 69 mL/min (50-200); Estimated Glomerular Filt Rate 102 ml/min (>60); GFR (African American) 124 ML/MIN (>60); Globulin 2.8 g/dL (1.3-3.2); Glucose 92 mg/dl (74-100); Potassium 3.7 mmoL/L (3.5-5.1); Sodium 135 mmol/L (136-145); Total Protein,Serum 6.1 g/dl (6.3-8.2)
[2021-04-21 06:48] LABS: C-Reactive Protein 4.8 mg/L (0-4)
[2021-04-21 08:00] VITALS: BP 105/64; PULSE 82; RESP 16; TEMP 36.7; O2SAT 99
[2021-04-21 12:58] LABS: Vancomycin,Trough 10.2 ug/mL (5.0-10.0)
--- NOTE | 2021-04-21 14:23 | HMH.ORTHPN ---
Subjective Date: 04/21/21 Time: 13:00 Principal diagnosis: Status post I&D hematoma left hip; status post left CHERYL Interval history: Patient is status post LEFT hip evacuation of hematoma (following recent total hip arthroplasty 3 weeks ago), post op day #2. Patient is lying down on the bed and says she is doing well. Patient says her pain is better today than yesterday and rates it an 6 out of 10 at its worse. She says it's well-controlled with as needed pain medication. No history of any nausea or vomiting. No history of any cough, chest pain, shortness of breath or palpitations. Patient says she is eating and drinking well. No history of any distal tingling or numbness. PN: Obj Ex Vital signs: Temp Pulse Resp BP Pulse Ox 98.1 F 82 16 105/64 L 99 04/21/21 08:00 04/21/21 08:00 04/21/21 08:00 04/21/21 08:00 04/21/21 08:00 Narrative: Laboratory Results - last 24 hr 04/21/21 05:50: WBC 8.0, RBC 2.98 L, Hgb 8.9 L, Hct 28.9 L, MCV 97.0, MCH 29.9, MCHC 30.8 L, RDW 15.1, Plt Count 365, MPV 6.9 L, Neut % (Auto) 50.1, Lymph % (Auto) 30.6, [place] % (Auto) 6.2, Eos % (Auto) 12.3 H, Baso % (Auto) 0.8, Neut # (Auto) 4.0, Lymph # (Auto) 2.5, [place] # (Auto) 0.5, Eos # (Auto) 1.0 H, Baso # (Auto) 0.1, ESR 105 H 04/21/21 05:50: Sodium 135 L, Potassium 3.7, Chloride 99, Carbon Dioxide 31 H, Anion Gap 8.7, BUN 13 D, Creatinine 0.60, Estimated Creat Clear 69, Estimated GFR 102, Est GFR ( Amer) 124, Glucose 92, Calcium 8.9, Total Bilirubin 0.2, AST 40 H, ALT 26, Alkaline Phosphatase 60, C-Reactive Protein 4.8 H, Total Protein 6.1 L, Albumin 3.3 L, Globulin 2.8, Albumin/Globulin Ratio 1.2 04/21/21 11:39: Vancomycin Trough 10.2 H 04/21/21 16:20: Vancomycin Peak 48.1 H* Microbiology 04/19/21 12:05 Hip,Left - Wound Gram Stain - Final 04/19/21 12:05 Hip,Left - Wound Wound Culture - Preliminary NO GROWTH AFTER 48 HOURS 04/19/21 12:05 Hip,Left - Wound Gram Stain - Final 04/19/21 12:05 Hip,Left - Wound Surgical Biopsy Culture - Preliminary NO GROWTH AFTER 48 HOURS Exam: General appearance: alert, active, awake, no acute distress Cardiovascular: regular rate & rhythm, normal peripheral pulses Respiratory: No respiratory distress noted, speaks in full sentences ABD: soft and non tender Neuro: alert, awake, oriented x 3 Psych: Appropriate mood and affect On examination of the lower extremities, the limb lengths are equal. Thigh and calf are soft and nontender. On examination of the LEFT hip the dressings are clean, dry and intact. The surgical drain is in place and draining serosanguineous fluid. No soakage of dressings noted. I have changed the dressings today and removed the surgical drain. The surgical incision appears healthy. No erythema or induration noted; no discharge noted from the incision. She has moderate tenderness over the left hip. Distal pulses are 2+. Distal sensation is intact to light touch throughout. No motor deficits noted distally. Progress Note: A&P (1) Postoperative hematoma Status: Acute (2) S/P total hip arthroplasty Status: Acute (3) Hyperlipidemia Status: Chronic (4) Hypertension Status: Chronic (5) Morbid obesity with BMI of 45.0-49.9, adult Status: Chronic Assessment and Plan for All Diagnoses:: I have reviewed the clinical findings and progress with the patient. Patient is doing well and reports no new problems. The intraoperative cultures have been negative so far-I have personally discussed the results with the lab. Patient is mobilizing well weightbearing as tolerated on the LEFT side with the walker and to continue the same. As she is doing well and the cultures have been negative so far, I am going to discharge her to home with home health. I have advised her to restart Xarelto for DVT prophylaxis. Also advised her to continue oral antibiotics previously prescribed. Change of dressings as needed. Continue
--- NOTE | 2021-04-21 14:28 | DIET.NUTRFU ---
PO intakes 75%, weight stable, normal bowel function.
--- NOTE | 2021-04-21 14:29 | HMH.DCSUM ---
General - General Admission date:: 04/18/21 Discharge date: 04/21/21 HPI HPI: Patient is a 60-year-old female who underwent an uneventful primary left total hip arthroplasty about 3 weeks ago (on 03/29/21). Following removal of the Dermabond Prineo dressing at 2 weeks postop follow-up appointment, she developed intermittent drainage of altered blood from the mid part of the incision about 16 days after surgery. I have seen the patient in the office at 2 weeks after surgery at which point there were no problems with the wound. Couple of days after that appointment, she reports leaking altered blood from a small opening in the mid part of the incision. Subsequently, I have seen her in the office on Monday at which point there was no drainage. She did have a subcutaneous hematoma but no signs of infection were noted. However, she reports further drainage of altered blood over the weekend. Following discussion with the patient over telephone, a decision was made to admit her and perform surgical evacuation of the hematoma. A limited revision total hip arthroplasty with debridement and exchange of the easily removable implants may be needed if there is any suspicion of infection during surgery. There is no history of any fevers, chills or rigors. Patient says she is feeling well within herself and has little pain which is well controlled with as needed pain medication. She is eating and drinking well. There is no history of any distal tingling or numbness. Following her office visit couple of days ago, I have started her on oral Keflex and clindamycin as a precautionary measure. She is also on oral Xarelto 10 mg daily and has taken the last dose yesterday. Her medical history includes Depression, Hyperlipidemia, hypertension and obesity. She is a non smoker. 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 Hospital Course Hospital Course: Following admission to the hospital, patient underwent evacuation of hematoma and debridement on 04/19/2021. She did well postoperatively without any complications. Patient was continued on IV antibiotics until discharge at which point intraoperative culture results were negative. On discharge, patient was advised to continue previously prescribed oral antibiotics (oral Keflex and clindamycin). Patient was advised to ambulate weight-bearing as tolerated on the left side. Patient managed this very well using the walker. Her pain is well controlled with oral analgesics. The surgical incision is clean and dry without any active discharge or signs of infection. Distal neurovascular status is intact. No clinical signs of DVT. Patient is eating and drinking well without any problems. Patient is medically stable at the time of discharge and was cleared for discharge by the physical therapist. The dressings were changed on the second postoperative day and the surgical incision is healthy and healing well. No signs of any erythema, induration or discharge noted. Patient was started on Xarelto 10 mg daily for DVT prophylaxis after surgery. The neurovascular status in both lower extremities is intact. Pedal pulses 2+ bilaterally and fully sensate distally. On the day of discharge, the incision is clean and dry. The patient's vital signs have been stable throughout and he is afebrile at the time of discharge. Patient is being discharged home with family and home health for postoperative rehab. Objective Vital signs: Temp Pulse Resp BP Pulse Ox 98.1 F 82 16 105/64 L 99 04/21/21 08:00 04/21/21 08:00 04/21/21 08:00 04/21/21 08:00 04/21/21 08:00 no acute distress, morbidly obese - *Routine HEENT Exam Head: Present: normocephalic Eye: Present: EOMI, PERRL ENT: Present: mucous membranes moist - *Routine Neck Exam Present: supple - *Routine Respiratory Exam Present: CTA bilaterally - *Routine Cardiovascular Exam Present: RRR - *Routine Abdominal Exam Present: soft
[2021-04-21 14:43] LABS: Erythrocyte Sedimentation Rate 105 mm/hr (0-30)
[2021-04-21 16:00] VITALS: BP 114/82; PULSE 83; RESP 20; TEMP 37.1; O2SAT 97
[2021-04-21 17:38] LABS: Vancomycin,Peak 48.1 ug/ml (11-39)
== END 2021-04-21 17:20 | disposition home health service (06) ==
PROVIDERS: Admitting Provider Orthopaedic Surgery; PCP Orthopaedic Surgery; Visit Provider Orthopaedic Surgery
PROC: (CPT 27130; principal; 2021-04-19 09:00)
DX: M96.840 Postprocedural hematoma of a musculoskeletal structure following a musculoskeletal system procedure (principal); Y83.4 Other reconstructive surgery as the cause of abnormal reaction of the patient, or of later complication, without mention of misadventure at the time of the procedure; Z96.642 Presence of left artificial hip joint; Z20.822 Contact with and (suspected) exposure to COVID-19; M16.12 Unilateral primary osteoarthritis, left hip; I10 Essential (primary) hypertension; E66.01 Morbid (severe) obesity due to excess calories; Z68.42 Body mass index [BMI] 45.0-49.9, adult; Z79.899 Other long term (current) drug therapy; Z79.01 Long term (current) use of anticoagulants
CPT/HCPCS: 10140; 36415; 80048; 80053; 80202; 85025; 85651; 86140; 86850; 87070; 87077; 87186; 87205; 97116; 97162; 97166; 97530; 97535; C9803; G0378; J2405; J3370; U0003; U0005

== ENCOUNTER → 2021-04-27 11:00 | Outpatient (CLI) | payer BC, SELFPAY ==
[2021-04-27 11:19] LABS: Basophils # 0.1 K/mm3 (0-0.2); Basophils % 1.4 % (0.1-2.0); Eosinophils # 1.3 K/mm3 (0.0-0.4); Eosinophils % 14.8 % (0.1-12.0); Hemoglobin 11.2 g/dL (12.2-16.2); Lymphocytes # 2.5 K/mm3 (0.7-4.5); Lymphocytes % 28.9 % (10-50); Mean Corpuscular HGB Conc 31.2 g/dL (31.8-35.4); Mean Corpuscular Hemoglobin 30.4 pg (27.0-31.2); Mean Corpuscular Volume 97.4 fl (81-99); Mean Platelet Volume 8.3 fl (7.4-10.4); Monocytes # 0.6 K/mm3 (0.1-1.0); Monocytes % 6.8 % (1.7-9.3); Neutrophils # 4.2 K/mm3 (1.8-7.8); Neutrophils % 48.2 % (37.0-80.0); Platelet Count 445 K/mm3 (142-424); Red Cell Distribution Width 15.3 % (11.5-17.5); White Blood Count 8.7 K/mm3 (4.8-10.8)
[2021-04-27 11:45] LABS: Erythrocyte Sedimentation Rate 50 mm/hr (0-30)
== END ==
PROVIDERS: Visit Provider Orthopaedic Surgery
DX: M25.552 Pain in left hip (principal); Z96.642 Presence of left artificial hip joint
CPT/HCPCS: 36415; 85025; 85651; 86140

== ENCOUNTER → 2021-05-04 08:57 | Outpatient (CLI) | payer BC, SELFPAY ==
--- NOTE | 2021-05-04 09:22 | XR_ITS ---
PROCEDURE: XR HIP LT 2-3V W/PELVIS CLINICAL INDICATION: sp CHERYL, sx 03/29/21 COMPARISON: CR XR HIP LT 2-3V W/PELVIS from 04/13/2021 FINDINGS: Status post total left hip replacement. There is good alignment with no evidence of complications. No fracture or dislocation. No lytic or blastic change. IMPRESSION: S/p total hip replacement. Good alignment. No evidence of orthopedic complication. Dictated by: Minesh Morgan MD 05/04/2021 12:04 Minesh Morgan MD in [facility] 05/04/2021 12:04
[2021-05-04 09:23] LABS: Basophils # 0.1 K/mm3 (0-0.2); Eosinophils # 0.9 K/mm3 (0.0-0.4); Eosinophils % 9.8 % (0.1-12.0); Hematocrit 37.1 % (37.0-47.0); Hemoglobin 11.5 g/dL (12.2-16.2); Lymphocytes # 3.4 K/mm3 (0.7-4.5); Lymphocytes % 36.4 % (10-50); Mean Corpuscular HGB Conc 30.9 g/dL (31.8-35.4); Mean Corpuscular Hemoglobin 30.1 pg (27.0-31.2); Mean Corpuscular Volume 97.3 fl (81-99); Mean Platelet Volume 8.1 fl (7.4-10.4); Monocytes # 0.5 K/mm3 (0.1-1.0); Monocytes % 5.6 % (1.7-9.3); Neutrophils # 4.4 K/mm3 (1.8-7.8); Neutrophils % 47.3 % (37.0-80.0); Platelet Count 371 K/mm3 (142-424); Red Blood Count 3.81 M/mm3 (4.20-5.40); Red Cell Distribution Width 14.5 % (11.5-17.5); White Blood Count 9.3 K/mm3 (4.8-10.8)
[2021-05-04 09:36] LABS: C-Reactive Protein 3.3 mg/L (0-4)
[2021-05-04 10:01] LABS: Erythrocyte Sedimentation Rate 30 mm/hr (0-30)
== END ==
PROVIDERS: Visit Provider Orthopaedic Surgery
DX: Z96.642 Presence of left artificial hip joint (principal); M25.552 Pain in left hip
CPT/HCPCS: 36415; 73502; 85025; 85651; 86140

== ENCOUNTER 2021-05-11 10:08 | Outpatient (CLI) | payer BC, SELFPAY ==
[2021-05-11 10:22] LABS: Basophils # 0.1 K/mm3 (0-0.2); Eosinophils # 0.6 K/mm3 (0.0-0.4); Eosinophils % 7.5 % (0.1-12.0); Hematocrit 38.8 % (37.0-47.0); Hemoglobin 12.4 g/dL (12.2-16.2); Lymphocytes # 2.5 K/mm3 (0.7-4.5); Mean Corpuscular HGB Conc 32.1 g/dL (31.8-35.4); Mean Corpuscular Hemoglobin 30.2 pg (27.0-31.2); Mean Corpuscular Volume 94.2 fl (81-99); Mean Platelet Volume 8.1 fl (7.4-10.4); Monocytes # 0.5 K/mm3 (0.1-1.0); Monocytes % 6.2 % (1.7-9.3); Neutrophils # 4.8 K/mm3 (1.8-7.8); Neutrophils % 56.3 % (37.0-80.0); Platelet Count 363 K/mm3 (142-424); Red Blood Count 4.11 M/mm3 (4.20-5.40); Red Cell Distribution Width 13.8 % (11.5-17.5); White Blood Count 8.5 K/mm3 (4.8-10.8)
[2021-05-11 10:59] LABS: Erythrocyte Sedimentation Rate 45 mm/hr (0-30)
[2021-05-11 13:00] VITALS: BP 126/75; PULSE 91; RESP 18; TEMP 36.7; O2SAT 98
--- NOTE | 2021-05-11 13:00 | PC.NURSE ---
1300- on assessment pt picc line dressing was soiled with blood and half way falling off. pt stated she asked her nurse at [facility] [place] if she could have her home health nurse changed the dressing but the nurse stated dont let anyone touch it. this nurse removed old dressing and cleaned dried blood off of site and catheter. on assessment the PICC line has 7cm of the catheter exposed. this nurse asked the pt if the PICC line had been pulled out since placement and she stated that it had been sticking out that much since it was inserted last week. dressing changed using sterile technique. line flushed with NS and + blood return noted after intervention.
[2021-05-11 13:41] VITALS: BP 131/78; PULSE 76; RESP 18; O2SAT 97
== END 2021-05-11 13:45 | disposition home or self-care (01) ==
LOC: LAB 10:08 → INF 12:12
PROVIDERS: PCP Internal Medicine; Visit Provider Orthopaedic Surgery
DX: Z09 Encounter for follow-up examination after completed treatment for conditions other than malignant neoplasm (principal); Z96.649 Presence of unspecified artificial hip joint; Z98.890 Other specified postprocedural states
CPT/HCPCS: 36415; 85025; 85651; 86140; 96365

== ENCOUNTER → 2021-05-25 09:04 | Outpatient (CLI) | payer BC, SELFPAY ==
--- NOTE | 2021-05-25 09:18 | XR_ITS ---
PROCEDURE: XR HIP LT 2-3V W/PELVIS CLINICAL INDICATION: s/p LT CHERYL COMPARISON: CR XR HIP LT 2-3V W/PELVIS from 05/04/2021 FINDINGS: Status post total left hip replacement with good alignment. No orthopedic complication. No fracture or dislocation. AP view of the pelvis shows mild osteoarthritic changes of the right hip. IMPRESSION: Good alignment status post total left hip replacement Dictated by: Minesh Morgan MD 05/25/2021 10:36 Minesh Morgan MD in [facility] 05/25/2021 10:36
[2021-05-25 09:25] LABS: Basophils # 0.1 K/mm3 (0-0.2); Eosinophils # 0.6 K/mm3 (0.0-0.4); Eosinophils % 6.6 % (0.1-12.0); Hematocrit 43.2 % (37.0-47.0); Hemoglobin 13.5 g/dL (12.2-16.2); Lymphocytes # 2.3 K/mm3 (0.7-4.5); Mean Corpuscular HGB Conc 31.2 g/dL (31.8-35.4); Mean Corpuscular Hemoglobin 29.4 pg (27.0-31.2); Mean Corpuscular Volume 94.1 fl (81-99); Mean Platelet Volume 8.1 fl (7.4-10.4); Monocytes # 0.6 K/mm3 (0.1-1.0); Monocytes % 6.5 % (1.7-9.3); Neutrophils % 58.9 % (37.0-80.0); Platelet Count 305 K/mm3 (142-424); Red Blood Count 4.59 M/mm3 (4.20-5.40); Red Cell Distribution Width 12.9 % (11.5-17.5); White Blood Count 8.5 K/mm3 (4.8-10.8)
[2021-05-25 09:42] LABS: C-Reactive Protein 5.5 mg/L (0-4)
[2021-05-25 10:51] LABS: Erythrocyte Sedimentation Rate 19 mm/hr (0-30)
== END ==
PROVIDERS: Visit Provider Orthopaedic Surgery
DX: M25.552 Pain in left hip (principal); Z09 Encounter for follow-up examination after completed treatment for conditions other than malignant neoplasm; Z96.649 Presence of unspecified artificial hip joint; Z98.890 Other specified postprocedural states
CPT/HCPCS: 36415; 73502; 85025; 85651; 86140

== ENCOUNTER → 2021-06-22 09:23 | Outpatient (CLI) | payer BC, SELFPAY ==
--- NOTE | 2021-06-22 09:31 | XR_ITS ---
PROCEDURE: XR HIP LT 2-3V W/PELVIS CLINICAL INDICATION: sp LT total hip COMPARISON: CR XR HIP LT 2-3V W/PELVIS from 05/25/2021 FINDINGS: S/p total left hip replacement. Good alignment. No evidence of orthopedic complication. AP view of the pelvis also shows mild osteoarthritic change of the right hip IMPRESSION: S/p total left hip replacement. Good alignment. No evidence of orthopedic complication. Dictated by: Minesh Morgan MD 06/23/2021 08:19 Minesh Morgan MD in [facility] 06/23/2021 08:19
[2021-06-22 09:39] LABS: Basophils # 0.1 K/mm3 (0-0.2); Basophils % 1.2 % (0.1-2.0); Eosinophils # 0.5 K/mm3 (0.0-0.4); Eosinophils % 5.5 % (0.1-12.0); Hematocrit 41.9 % (37.0-47.0); Hemoglobin 13.8 g/dL (12.2-16.2); Lymphocytes # 3.8 K/mm3 (0.7-4.5); Lymphocytes % 44.1 % (10-50); Mean Corpuscular Hemoglobin 29.2 pg (27.0-31.2); Mean Corpuscular Volume 88.3 fl (81-99); Mean Platelet Volume 8.4 fl (7.4-10.4); Monocytes # 0.6 K/mm3 (0.1-1.0); Monocytes % 6.8 % (1.7-9.3); Neutrophils # 3.7 K/mm3 (1.8-7.8); Neutrophils % 42.5 % (37.0-80.0); Platelet Count 340 K/mm3 (142-424); Red Blood Count 4.75 M/mm3 (4.20-5.40); Red Cell Distribution Width 13.4 % (11.5-17.5); White Blood Count 8.7 K/mm3 (4.8-10.8)
[2021-06-22 09:57] LABS: C-Reactive Protein 4.5 mg/L (0-4)
[2021-06-22 10:31] LABS: Erythrocyte Sedimentation Rate 17 mm/hr (0-30)
== END ==
PROVIDERS: Visit Provider Orthopaedic Surgery
DX: Z09 Encounter for follow-up examination after completed treatment for conditions other than malignant neoplasm (principal)
CPT/HCPCS: 36415; 73502; 85025; 85651; 86140

== ENCOUNTER 2021-07-06 11:00 | Outpatient (RCR) | payer BC, SELFPAY | END 2021-07-06 11:05 | disposition home or self-care (01) | LOC: PT 11:00 | PROVIDERS: PCP Internal Medicine; Visit Provider Orthopaedic Surgery | DX: M96.840 Postprocedural hematoma of a musculoskeletal structure following a musculoskeletal system procedure (principal); Z96.642 Presence of left artificial hip joint | CPT/HCPCS: 97010; 97014; 97110; 97112; 97163; 97164; 97530; G0283 ==

== ENCOUNTER → 2021-08-18 12:11 | Outpatient (CLI) | payer BC, SELFPAY ==
--- NOTE | 2021-08-18 12:14 | XR_ITS ---
FINAL REPORT CLINICAL HISTORY: sp LT CHERYL, SX 03/29/21 COMPARISON: June 22, 2021 FINDINGS: Left hip with pelvis. There is no acute fracture or dislocation. There has been total left hip arthroplasty. There are no soft tissue abnormalities. IMPRESSION: Total left hip arthroplasty. No change in alignment. Reviewed, Interpreted and Dictated by Song Delgado III, MD Transcribed by Jorge Ibrahim Authenticated by Song Delgado III, MD on 08/18/2021 01:43:56 PM [facility]
== END ==
PROVIDERS: PCP Internal Medicine; Visit Provider Orthopaedic Surgery
DX: M25.551 Pain in right hip (principal); Z96.641 Presence of right artificial hip joint
CPT/HCPCS: 73502

== ENCOUNTER → 2021-09-17 13:05 | Outpatient (CLI) | payer BC, SELFPAY ==
--- NOTE | 2021-09-17 13:10 | MM_ITS ---
PROCEDURE INFORMATION: Exam: MG Bilateral Screening 3D Mammography Exam date and time: 09/17/2021 1:10 PM Age: 60 years old Clinical indication: Encounter for screening mammogram for malignant neoplasm of breast TECHNIQUE: Imaging protocol: Bilateral Screening tomosynthesis and 2D mammography including computer-aided detection (CAD) when performed. COMPARISON: No relevant prior studies available. FINDINGS: MAMMOGRAPHY: Breast composition: The breast tissue is composed of scattered areas of fibroglandular density. Mass: None. Architectural distortion: None. Calcifications: No suspicious calcifications. Asymmetric density: None. Skin thickening: None. Axillary adenopathy: None. IMPRESSION: No mammographic evidence of malignancy. Annual screening is recommended unless otherwise clinically indicated. ASSESSMENT: BI-RADS Category 1: Negative
== END ==
PROVIDERS: PCP Internal Medicine; Visit Provider Internal Medicine
DX: Z12.31 Encounter for screening mammogram for malignant neoplasm of breast (principal)
CPT/HCPCS: 77063; 77067

== ENCOUNTER → 2021-11-05 12:33 | Outpatient (CLI) | payer BC, SELFPAY ==
--- NOTE | 2021-11-05 | ECG_ITS ---
APPROVED REPORT Exam: Resting ECG HR:71 bpm ECG Measurements Heart Rate 71 AXES OR 156 P 9 QRSd 85 QRS -24 QT 419 T -5 QTc 441 Conclusion SINUS RHYTHM BORDERLINE LEFT AXIS DEVIATION [QRS AXIS < -20] MODERATE T-WAVE ABNORMALITY, CONSIDER LATERAL ISCHEMIA [-0.1+ mV T-WAVE IN I/aVL/V5/V6] ABNORMAL ECG Electronically signed by : Carlitos Parisi MD 11/22/2021 16:10:04
== END ==
PROVIDERS: PCP Internal Medicine; Visit Provider Internal Medicine
DX: Z01.810 Encounter for preprocedural cardiovascular examination (principal)
CPT/HCPCS: 93005

== ENCOUNTER → 2021-11-16 13:08 | Outpatient (CLI) | payer BC, SELFPAY ==
--- NOTE | 2021-11-16 13:14 | XR_ITS ---
FINAL REPORT CLINICAL HISTORY: SP Lt CHERYL sx 03/29/2021 COMPARISON: 08/18/2021 FINDINGS: 2 views of the left hip including an AP pelvis were obtained. There is no acute fracture or dislocation. There is a total left hip joint prosthesis in good anatomic alignment. There are no soft tissue abnormalities. IMPRESSION: Left hip prosthesis in good anatomic alignment. Reviewed, Interpreted and Dictated by Kishore Mendiola MD Transcribed by Jorge Ibrahim Authenticated by Kishore Mendiola MD on 11/16/2021 03:14:42 PM [facility]
== END ==
PROVIDERS: PCP Internal Medicine; Visit Provider Orthopaedic Surgery
DX: M25.552 Pain in left hip (principal); Z96.642 Presence of left artificial hip joint
CPT/HCPCS: 73502

== ENCOUNTER → 2021-12-27 16:52 | Outpatient (CLI) | payer BC, SELFPAY ==
[2021-12-27 18:09] LABS: Basophils # 0.1 K/mm3 (0-0.2); Basophils % 1.7 % (0.1-2.0); Eosinophils # 0.4 K/mm3 (0.0-0.4); Hematocrit 39.5 % (37.0-47.0); Hemoglobin 12.9 g/dL (12.2-16.2); Lymphocytes # 2.6 K/mm3 (0.7-4.5); Lymphocytes % 39.8 % (10-50); Mean Corpuscular HGB Conc 32.8 g/dL (31.8-35.4); Mean Corpuscular Hemoglobin 29.7 pg (27.0-31.2); Mean Corpuscular Volume 90.7 fl (81-99); Mean Platelet Volume 10.4 fl (7.4-10.4); Monocytes # 0.5 K/mm3 (0.1-1.0); Monocytes % 7.2 % (1.7-9.3); Neutrophils # 2.9 K/mm3 (1.8-7.8); Neutrophils % 45.4 % (37.0-80.0); Platelet Count 244 K/mm3 (142-424); Red Blood Count 4.35 M/mm3 (4.20-5.40); Red Cell Distribution Width 13.5 % (11.5-17.5); White Blood Count 6.5 K/mm3 (4.8-10.8)
[2021-12-27 18:45] LABS: Anion Gap 10.2 mEq/L (5-15); Blood Urea Nitrogen 14 mg/dl (7-17); Calcium 8.9 mg/dl (8.4-10.2); Carbon Dioxide 28 mmol/L (22.0-30.0); Chloride 104 mmol/L (98-107); Estimated Glomerular Filt Rate 102 ml/min (>60); GFR (African American) 123 ML/MIN (>60); Glucose 79 mg/dl (74-100); Potassium 4.2 mmoL/L (3.5-5.1); Sodium 138 mmol/L (136-145)
[2021-12-27 18:51] LABS: C-Reactive Protein 2.3 mg/L (0-4)
[2021-12-27 19:04] LABS: Erythrocyte Sedimentation Rate 21 mm/hr (0-30)
== END ==
PROVIDERS: PCP Internal Medicine; Visit Provider Internal Medicine
DX: M25.552 Pain in left hip (principal); T81.49XA Infection following a procedure, other surgical site, initial encounter
CPT/HCPCS: 80048; 85025; 85651; 86140

== ENCOUNTER → 2022-01-04 10:42 | Outpatient (CLI) | payer BC, SELFPAY ==
--- NOTE | 2022-01-04 10:57 | CT_ITS ---
FINAL REPORT CLINICAL HISTORY: LT HIP PAIN since total hip replacement FINDINGS: CT LEFT HIP WITHOUT CONTRAST Technique: Axial images through the left hip were performed by computed tomography. Sagittal and coronal reconstruction images were performed. This study was performed with techniques to keep radiation doses as low as reasonably achievable (ALARA). Individualized dose reduction techniques using automated exposure control or adjustment of mA and/or kV according to the patient's size were employed. There are postoperative changes from left hip arthroplasty. There is a nondisplaced fracture of the anterior medial cortex of the proximal left femur favored to be subacute. There is a chronic calcification anterior to the proximal left femur. Degenerative changes are seen in the lower lumbar spine. There is significant atrophy of the left rectus femoris muscle. IMPRESSION: Left hip arthroplasty. Nondisplaced fracture of the anterior-medial cortex of the proximal femur, favor subacute. Significant atrophy of the rectus femoris muscle. Reviewed, Interpreted and Dictated by Song Delgado III, MD Transcribed by Jorge Ibrahim Authenticated by Song Delgado III, MD on 01/04/2022 12:35:12 PM [facility]
== END ==
PROVIDERS: PCP Internal Medicine; Visit Provider Internal Medicine
DX: M25.552 Pain in left hip (principal)
CPT/HCPCS: 73700

== ENCOUNTER → 2022-02-15 12:30 | Outpatient (CLI) | payer BC, SELFPAY ==
--- NOTE | 2022-02-15 12:41 | XR_ITS ---
FINAL REPORT CLINICAL HISTORY: s/p lt CHERYL COMPARISON: 11/16/2021 FINDINGS: LEFT HIP Two views of the left hip with AP pelvis demonstrate left total hip prosthesis with anatomic alignment. The visualized bony structures are well aligned. No soft tissue abnormality is seen. IMPRESSION: Total hip prosthesis with anatomic alignment. Reviewed, Interpreted and Dictated by Kishore Mendiola MD Transcribed by Juanis Alaniz Authenticated and . [facility]
== END ==
PROVIDERS: PCP Internal Medicine; Visit Provider Orthopaedic Surgery
DX: M25.551 Pain in right hip (principal); Z96.641 Presence of right artificial hip joint
CPT/HCPCS: 73502

== ENCOUNTER 2022-03-24 17:00 | Outpatient (RCR) | payer BC, SELFPAY ==
--- NOTE | 2022-01-12 17:32 | HMH.PTOPEV ---
PT Outpatient Evaluation Rehab PT Outpatient Evaluation Start: 01/12/22 15:55 Freq: Status: Active Protocol: Document 01/12/22 15:58 CEDRICMarielle (Rec: 01/12/22 17:31 YAHIR [id number]) Electronically Signed By Fang Beebe PT 01/12/22 15:58 Outpatient Therapy Subjective History Subjective History Pt is a 61 y/o female that reports she had a left total hip replacement in March of 2021 and anterior thigh pain a few months later. Pt reports she was cleared to return to work in Jul/Aug where she further hurt the hip while stepping onto a [employer] with a steep step in November. Pt reports she then went to her primary care doctor who gave her an injection and steroid pack which helped for a few days. She reports she also had a CT scan at [facility] performed and was told she had a fractured femur; however, she recently saw Dr. Gunn who said she did not have a fracture. Pt reports she has a followup with Dr. Harris who performed her CHERYL tomorrow to further assess. Pt reports she did have PT after her CHERYL with good tolerance but is no longer doing her HEP. Pt denies recent falls or change in balance and states she feels she does not need to use an AD. Pt reports she has ~7 stairs to get into her home with 1 HR and has to use a step to pattern climb them. 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
--- NOTE | 2022-02-24 18:07 | HMH.RHREAS ---
Rehab Reassessment Rehab OP Re-assessment Start: 02/24/22 15:54 Freq: Status: Active Protocol: Document 02/24/22 15:54 YAHIR (Rec: 02/24/22 17:21 YAHIR [id number]) Electronically Signed By Fang Beebe, PT 02/24/22 15:54 Rehab Re-assessment Subjective Subjective Pt reports she feels that she has improved 70-75% since starting PT. I don't know if pain will ever go away. Pt reports pain at worse within the past week as 8/10 following her vacation. Pt reports constant throbbing pain like a tooth ache in the anterior groin that increases with activity throughout the day. Pt states she still has increased pain at work and is unable to work half a shift without increased pain. Pt states she returns to Dr. Harris on March 29, 2022 which will be one year following CHERYL. Objective Objective Notes L hip AROM: hip flex 105, abd: 40, add:30 LE MMT: geoss hip strength 4-/ 5 Stair negotiation: 1 flight with 1 HR with reciprocal pattern, no report of pain Gait: non-antalgic gait noted this date Assessment Progress Assessment Progressing as Expected Assessment Notes Pt has attended 7 PT sessions consisting of aerobic exercise , LE stretching/strengthening, and modalities with good tolerance. Pt reports 70% improvement since starting but continues to have anterior hip pain and functional deficits with prolonged standing/walking/stair climbing. Pt has not attended PT in over 3 weeks due to vacation posing as barrier to progression. Pt would continue to benefit from skilled PT to further improve pain, tissue extensibility,
--- NOTE | 2022-03-24 18:01 | HMH.RHREAS ---
Rehab Reassessment Rehab OP Re-assessment Start: 02/24/22 15:54 Freq: Status: Active Protocol: Document 03/24/22 16:45 YAHIR (Rec: 03/24/22 18:01 ADECORINAT [id number]) Electronically Signed By Fang Beebe, PT 03/24/22 16:45 Rehab Re-assessment Subjective Subjective Pt reports she feels that she has improved 95% since starting PT and is pleased with her progress. Pt reports she is able to do all functional activities she needs to do without pain/ difficulty. Pt reports she is able to work a full shift without pain just some stiffness. Pt reports pain at worse as 2/10 and states it is getting to the point where I hardly notice it anymore. Objective Objective Notes Hip AROM: flex 110, abd/add 45 LE MMT: 4+/5 grossly Assessment Progress Assessment Progressing as Expected Assessment Notes Pt has attended 11 PT visits consisting of LE stretching, strengthening, aerobic exercise and modalities with good tolerance. Pt has met all PT goals and is appropriate to discharge to independent HEP. Patient goals met LT/11 Goals Not Met n/a Revised Goals n/a Plan Plan D/c pt to independent HEP Frequency of Therapy 0 Duration of therapy 0 Time and Billing Re-Eval Time 8 Re-Eval Billing Units 1 PHYSICIAN CERTIFICATION: I certify the specified therapy services for Amy Noguera are required, authorized, and reviewed every 30 days.
== END 2022-03-24 17:05 | disposition home or self-care (01) ==
LOC: PT 17:00
PROVIDERS: PCP Internal Medicine; Visit Provider Orthopaedic Surgery
DX: S72.145D Nondisplaced intertrochanteric fracture of left femur, subsequent encounter for closed fracture with routine healing (principal)
CPT/HCPCS: 97010; 97014; 97033; 97110; 97112; 97163; 97164; 97530; G0283

== ENCOUNTER → 2022-03-29 12:23 | Outpatient (CLI) | payer BC, SELFPAY ==
--- NOTE | 2022-03-29 12:28 | XR_ITS ---
FINAL REPORT CLINICAL HISTORY: left hip pain COMPARISON: February 15, 2022 FINDINGS: LEFT HIP: Two views of the left hip with an AP pelvis demonstrate no acute fracture or dislocation. There is a left hip total joint prosthesis. The visualized bony structures are well aligned. No soft tissue abnormality is seen. IMPRESSION: No acute bony abnormality. Reviewed, Interpreted and Dictated by Kishore Mendiola MD Transcribed by Kiley Clemens Authenticated and [facility]
== END ==
PROVIDERS: PCP Internal Medicine; Visit Provider Physician Assistant Surgical
DX: M25.552 Pain in left hip (principal); Z96.642 Presence of left artificial hip joint
CPT/HCPCS: 73502

== ENCOUNTER → 2022-09-14 10:51 | Outpatient (CLI) | payer BC, SELFPAY ==
--- NOTE | 2022-09-14 11:06 | XR_ITS ---
FINAL REPORT CLINICAL HISTORY: Hip Pain COMPARISON: 03/29/2022 FINDINGS: LEFT HIP Two views of the left hip demonstrate no acute fracture or dislocation. There is left hip total joint prosthesis. There is no evidence of lucency. The visualized bony structures are well aligned. No soft tissue abnormality is seen. IMPRESSION: Postoperative changes with no acute bony abnormality. Reviewed, Interpreted and Dictated by Kishore Mendiola MD Transcribed by Juanis Alaniz Authenticated and [facility]
== END ==
PROVIDERS: PCP Internal Medicine; Visit Provider Physician Assistant Surgical
DX: M25.552 Pain in left hip
CPT/HCPCS: 73502

== ENCOUNTER → 2022-10-07 10:43 | Outpatient (CLI) | payer BC, SELFPAY ==
--- NOTE | 2022-10-07 10:49 | MM_ITS ---
PROCEDURE INFORMATION: Exam: MG Bilateral Screening 3D Mammography Exam date and time: 10/07/2022 10:59 AM Age: 61 years old Clinical indication: Screening examination. Her maternal grandmother had breast cancer. TECHNIQUE: Imaging protocol: Bilateral Screening tomosynthesis and 2D mammography including computer-aided detection (CAD) when performed. COMPARISON: 1. MG MM DIG SCREENING MAMM BI W/CAD 09/17/2021 1:13 PM 2. MG MM DIG SCREENING MAMM BI W/CAD 09/11/2020 1:09 PM 3. MG MM DIG SCREENING MAMM BI W/CAD 09/06/2019 4:03 PM 4. MG DXRT MM Dig mamm DX unilat RT CAD 11/05/2018 2:27 PM FINDINGS: MAMMOGRAPHY: Breast composition: There are scattered areas of fibroglandular density. Mass: None. Architectural distortion: None. Calcifications: No suspicious calcifications. Asymmetric density: None. Skin thickening: None. Axillary adenopathy: None. Other: Left biopsy clips. IMPRESSION: No mammographic evidence of malignancy. Annual screening is recommended unless otherwise clinically indicated. ASSESSMENT: BI-RADS Category 2: Benign
== END ==
PROVIDERS: PCP Internal Medicine; Visit Provider Internal Medicine
DX: Z12.31 Encounter for screening mammogram for malignant neoplasm of breast (principal)
CPT/HCPCS: 77063; 77067

== ENCOUNTER → 2022-12-02 17:04 | Outpatient (CLI) | payer BC, SELFPAY ==
[2022-12-02 17:43] LABS: Basophils # 0.1 K/mm3 (0-0.2); Basophils % 0.4 % (0.1-2.0); Eosinophils # 0.5 K/mm3 (0.0-0.4); Hematocrit 37.6 % (37.0-47.0); Hemoglobin 12.6 g/dL (12.2-16.2); Lymphocytes # 3.4 K/mm3 (0.7-4.5); Lymphocytes % 29.2 % (10-50); Mean Corpuscular HGB Conc 33.4 g/dL (31.8-35.4); Mean Corpuscular Hemoglobin 29.8 pg (27.0-31.2); Mean Corpuscular Volume 89.3 fl (81-99); Mean Platelet Volume 8.4 fl (7.4-10.4); Monocytes # 0.7 K/mm3 (0.1-1.0); Monocytes % 6.3 % (1.7-9.3); Neutrophils # 6.9 K/mm3 (1.8-7.8); Platelet Count 313 K/mm3 (142-424); Red Blood Count 4.21 M/mm3 (4.20-5.40); Red Cell Distribution Width 13.8 % (11.5-17.5); White Blood Count 11.6 K/mm3 (4.8-10.8)
[2022-12-02 17:45] LABS: Alanine Aminotransferase 56 U/L (12-78); Albumin Level 3.9 g/dl (3.5-5.0); Albumin/Globulin Ratio 1.5 (1.1-1.8); Alkaline Phosphatase 95 U/L (38-126); Anion Gap 12.6 mEq/L (5-15); Aspartate Amino Transferase 58 U/L (14-36); Bilirubin,Total 0.3 mg/dl (0.2-1.3); Blood Urea Nitrogen 21 mg/dl (7-17); Calcium 8.8 mg/dl (8.4-10.2); Carbon Dioxide 27 mmol/L (22.0-30.0); Chloride 102 mmol/L (98-107); Chol/HDL Ratio 4.4 (1-3.5); Cholesterol 213 mg/dl (140-200); Estimated Glomerular Filt Rate 102 ml/min (>60); GFR (African American) 123 ML/MIN (>60); Globulin 2.6 g/dL (1.3-3.2); Glucose 147 mg/dl (74-100); HDL Cholesterol 48 mg/dl (40-60); Potassium 3.6 mmoL/L (3.5-5.1); Sodium 138 mmol/L (136-145); Total Protein,Serum 6.5 g/dl (6.3-8.2)
[2022-12-02 17:54] LABS: Triglycerides 938 mg/dl (30-150)
[2022-12-02 18:16] LABS: Thyroid Stimulating Hormone 2.05 uIU/mL (0.465-4.68)
[2022-12-02 18:49] LABS: Hemoglobin A1C 5.6 % (4.0-6.0)
== END ==
PROVIDERS: PCP Internal Medicine; Visit Provider Internal Medicine
DX: I10 Essential (primary) hypertension (principal); R73.01 Impaired fasting glucose; D64.9 Anemia, unspecified; K76.0 Fatty (change of) liver, not elsewhere classified; M15.0 Primary generalized (osteo)arthritis; G47.33 Obstructive sleep apnea (adult) (pediatric); E66.01 Morbid (severe) obesity due to excess calories; Z68.42 Body mass index [BMI] 45.0-49.9, adult
CPT/HCPCS: 80053; 80061; 83036; 84443; 85025

== ENCOUNTER → 2023-04-28 15:15 | Outpatient (CLI) | payer OTHER, SELFPAY ==
--- NOTE | 2023-04-28 15:24 | XR_ITS ---
FINAL REPORT CLINICAL HISTORY: PLEUDRISY,SOA FINDINGS: CHEST 2 VIEWS PA AND LATERAL The heart is normal in size. The mediastinum is unremarkable. The lungs are clear. There is no pneumothorax. IMPRESSION: No acute process. Reviewed, Interpreted and Dictated by Kishore Mendiola MD Transcribed by Otilia Hernandez Authenticated and [facility]
[2023-04-28 15:59] LABS: D-Dimer 0.94 ug/mL (0.0-0.5)
--- NOTE | 2023-04-28 17:02 | CT_ITS ---
PROCEDURE INFORMATION: Exam: CTA Chest With Contrast Exam date and time: 04/28/2023 5:22 PM Age: 62 years old Clinical indication: Pain; Chest pressure; Patient HX: Elevated d dimer; Additional info: Chest pain TECHNIQUE: Imaging protocol: Computed tomographic angiography of the chest with contrast. Exam focused on the arteries. 3D rendering (Not supervised by radiologist): MIP and/or 3D reconstructed images were created by the technologist. Radiation optimization: All CT scans at this facility use at least one of these dose optimization techniques: automated exposure control; mA and/or kV adjustment per patient size (includes targeted exams where dose is matched to clinical indication); or iterative reconstruction. Contrast material: ISO 370; Contrast volume: 75 ml; Contrast route: INTRAVENOUS (IV); REPORTING DATA: Count of CT and Cardiac NM exams in prior 12 months: This patient has received 0 known CTs and 0 known cardiac nuclear medicine studies in the 12 months prior to the current study. COMPARISON: [facility] CT angio chest 10/09/2017 5:11 PM FINDINGS: Pulmonary arteries: There is fair opacification of the pulmonary arterial tree. No central pulmonary arterial filling defect is seen. Aorta: Unremarkable. No aortic aneurysm. No aortic dissection. Lungs: Calcified granuloma in the right upper lobe. Scattered areas of bronchial wall thickening which are likely chronic inflammatory. A few areas of subpleural reticulation are noted, nonspecific. Pleural spaces: Unremarkable. No pneumothorax. No pleural effusion. Heart: There is a trace pericardial effusion. Coronary arteries: There is mild coronary atherosclerotic disease/calcification. Lymph nodes: Unremarkable. No enlarged lymph nodes. Bones/joints: Unremarkable. No acute fracture. Soft tissues: Unremarkable. IMPRESSION: 1. There is fair opacification of the pulmonary arterial tree. No central pulmonary arterial filling defect is seen. 2. No dense parenchymal consolidation, pleural effusion, or pneumothorax.
[2023-04-28 17:04] LABS: Blood Urea Nitrogen 19 mg/dl (7-17); Estimated Glomerular Filt Rate 85 ml/min (>60); GFR (African American) 103 ML/MIN (>60)
== END ==
PROVIDERS: PCP Internal Medicine; Visit Provider Internal Medicine
DX: R06.02 Shortness of breath (principal); R09.1 Pleurisy
CPT/HCPCS: 36415; 71046; 71275; 82565; 84520; 85378; Q9967

== ENCOUNTER 2023-11-07 14:57 | Outpatient (CLI) | payer OTHER, SELFPAY ==
--- NOTE | 2023-11-07 15:05 | XR_ITS ---
PROCEDURE INFORMATION: Exam: XR Right Ankle Exam date and time: 11/07/2023 3:08 PM Age: 63 years old Clinical indication: Pain; Ankle; Right; Additional info: RT ankle pain, swelling, TECHNIQUE: Imaging protocol: Radiologic exam of the right ankle. Views: 3 or more views. COMPARISON: No relevant prior studies available. FINDINGS: Bones/joints: Multiple views were obtained. The osseous structures appear intact with no evidence of acute fracture, dislocation, or malalignment. Degenerative changes are noted, consistent with age-related wear and tear. Joint spaces are generally preserved. No abnormal bone density or destructive lesions are noted. Soft tissues: Soft tissue swelling is observed, warranting further clinical correlation. IMPRESSION: At the time of imaging, the skeletal radiograph demonstrates no acute osseous abnormalities but shows signs of degenerative changes and soft tissue swelling. Clinical correlation is strongly recommended for comprehensive assessment.
== END 2023-11-07 23:59 ==
LOC: RAD 14:58
PROVIDERS: PCP Internal Medicine; Visit Provider Internal Medicine
DX: M25.571 Pain in right ankle and joints of right foot (principal); R22.41 Localized swelling, mass and lump, right lower limb
CPT/HCPCS: 73610

== ENCOUNTER 2023-12-19 15:00 | Outpatient (RCR) | payer BC, SELFPAY | END 2023-12-19 16:00 | disposition home or self-care (01) | LOC: PT 15:00 | PROVIDERS: Visit Provider Internal Medicine | DX: M25.571 Pain in right ankle and joints of right foot (principal); S93.491A Sprain of other ligament of right ankle, initial encounter | CPT/HCPCS: 97010; 97163; 97530 ==

== ENCOUNTER 2024-05-22 15:33 | Outpatient (CLI) | payer BC, SELFPAY ==
[2024-05-22 16:46] LABS: Basophils # 0.1 K/mm3 (0-0.2); Basophils % 1.1 % (0.1-2.0); Eosinophils # 1.1 K/mm3 (0.0-0.4); Eosinophils % 13.1 % (0.1-12.0); Hematocrit 43.3 % (37.0-47.0); Lymphocytes # 2.4 K/mm3 (0.7-4.5); Lymphocytes % 29.2 % (10-50); Mean Corpuscular HGB Conc 34.7 g/dL (31.8-35.4); Mean Corpuscular Hemoglobin 32.5 pg (27.0-31.2); Mean Corpuscular Volume 93.6 fl (81-99); Mean Platelet Volume 8.9 fl (7.4-10.4); Monocytes # 0.6 K/mm3 (0.1-1.0); Monocytes % 7.7 % (1.7-9.3); Platelet Count 200 K/mm3 (142-424); Red Blood Count 4.62 M/mm3 (4.20-5.40); Red Cell Distribution Width 13.4 % (11.5-17.5); White Blood Count 8.2 K/mm3 (4.8-10.8)
[2024-05-22 17:58] LABS: Albumin Level 4.4 g/dl (3.5-5.0); Chloride 102 mmol/L (98-107)
[2024-05-22 17:59] LABS: Potassium 4.4 mmoL/L (3.5-5.1); Sodium 137 mmol/L (136-145)
[2024-05-22 18:01] LABS: Alanine Aminotransferase 70 U/L (12-78); Albumin/Globulin Ratio 1.3 (1.1-1.8); Alkaline Phosphatase 126 U/L (38-126); Anion Gap 9.4 mEq/L (5-15); Aspartate Amino Transferase 82 U/L (14-36); Bilirubin,Total 0.7 mg/dl (0.2-1.3); Blood Urea Nitrogen 16 mg/dl (7-17); Carbon Dioxide 30 mmol/L (22.0-30.0); Estimated Glomerular Filt Rate 125 ml/min (>60); GFR (African American) 151 ML/MIN (>60); Globulin 3.4 g/dL (1.3-3.2); Total Protein,Serum 7.8 g/dl (6.3-8.2)
[2024-05-22 18:02] LABS: Calcium 9.8 mg/dl (8.4-10.2); Chol/HDL Ratio 2.8 (1-3.5); Cholesterol 229 mg/dl (140-200); Glucose 163 mg/dl (74-100); HDL Cholesterol 83 mg/dl (40-60); Triglycerides 163 mg/dl (30-150); VLDL Cholesterol 33 mg/dL (0-40)
[2024-05-24 16:38] LABS: Hemoglobin A1C 8.1 % (4.0-6.0)
== END 2024-05-22 23:59 | disposition home or self-care (01) ==
LOC: LAB.DROPOF 05-23 10:12
PROVIDERS: PCP Internal Medicine; Visit Provider Internal Medicine
DX: M26.19 Other specified anomalies of jaw-cranial base relationship (principal); M26.9 Dentofacial anomaly, unspecified; E78.5 Hyperlipidemia, unspecified; I10 Essential (primary) hypertension
CPT/HCPCS: 80053; 80061; 82787; 83036; 85025

== ENCOUNTER 2024-07-08 13:52 | Outpatient (CLI) | payer BC, SELFPAY ==
--- NOTE | 2024-07-08 13:52 | MM_ITS ---
PROCEDURE INFORMATION: Exam: MG Bilateral Screening 3D Mammography Exam date and time: 07/08/2024 1:40 PM Age: 63 years old Clinical indication: Screening examination TECHNIQUE: Imaging protocol: Bilateral Screening tomosynthesis and 2D mammography including computer-aided detection (CAD) when performed. COMPARISON: 1. MG MM DIG SCREENING MAMM BI W/CAD 10/07/2022 10:59 AM 2. MG MM DIG SCREENING MAMM BI W/CAD 09/17/2021 1:13 PM FINDINGS: MAMMOGRAPHY: Breast composition: There are scattered areas of fibroglandular density. Mass: Low density 0.9 cm round mass in the left lateral breast, approximate 3-4 o'clock axis, posterior depth. Architectural distortion: None. Calcifications: No suspicious calcifications. Asymmetric density: None. Skin thickening: None. Axillary adenopathy: None. IMPRESSION: Patient to be recalled for spot compression views of the left breast in the CC and MLO projections, a full 90 degree lateral view, and left breast ultrasound for further evaluation of a left breast mass. ASSESSMENT: BI-RADS Category 0: Incomplete- Need Additional Imaging Evaluation.
== END 2024-07-08 23:59 | disposition home or self-care (01) ==
LOC: RAD 13:52
PROVIDERS: PCP Internal Medicine; Visit Provider Internal Medicine
DX: Z12.31 Encounter for screening mammogram for malignant neoplasm of breast (principal)
CPT/HCPCS: 77063; 77067

== ENCOUNTER 2024-07-24 10:21 | Outpatient (CLI) | payer BC, SELFPAY ==
--- NOTE | 2024-07-24 10:21 | US_ITS ---
PROCEDURE INFORMATION: Exam: US Left Breast, Complete MG Left Diagnostic Breast Tomosynthesis Exam date and time: 07/24/2024 10:25 AM Age: 63 years old Clinical indication: Patient recalled on the basis of a screening mammogram for further evaluation; Left breast; mass TECHNIQUE: Imaging protocol: Complete ultrasound of all four quadrants of the left breast and the retroareolar regions, including ultrasound of the axilla when performed. Left Diagnostic tomosynthesis and 2D mammography including computer-aided detection (CAD) when performed. Unilateral or bilateral exam. COMPARISON: MG MM DIG SCREENING MAMM BI W/CAD 07/08/2024 1:40 PM FINDINGS: MAMMOGRAPHY: Breast composition: There are scattered areas of fibroglandular density (based on the most recent screening mammogram report). Breast mammogram findings: Digital diagnostic spot compression views of the left breast and 90 degree lateral view of the left breast demonstrate a persistent 0.9 cm round mass laterally ULTRASOUND: Breast ultrasound findings: Sonographic images of the left 5 o'clock axis 6 cm from the nipple demonstrates a 1 cm cyst corresponding to the mass on mammography. Two additional subcentimeter cysts scattered in the left upper outer quadrant and 3 o'clock axis cursors were placed over normal anatomic structures in the left 6 o'clock axis 2 cm from the nipple. No solid masses. No architectural distortion or acoustic shadowing. No axillary adenopathy. IMPRESSION: Mass on screening mammography corresponds to underlying cystic change sonographically. There is no mammographic evidence of malignancy.Annual bilateral mammographic screening is recommended unless otherwise clinically indicated. ASSESSMENT: BI-RADS Category 2: Benign.
== END 2024-07-24 23:59 | disposition home or self-care (01) ==
LOC: RAD 10:21
PROVIDERS: PCP Internal Medicine; Visit Provider Internal Medicine
DX: R92.8 Other abnormal and inconclusive findings on diagnostic imaging of breast (principal)
CPT/HCPCS: 76641; 77061; 77065; G0279